=== PATIENT | male | born 1940 | race Caucasian/White ===

== ENCOUNTER 2017-04-01 08:17 | Emergency (ER) | payer MEDICARE, OTHER ==
--- NOTE | 2017-04-01 08:52 | ERPHSYRPT ---
- History of Present Illness Time Seen by Provider: 04/01/17 08:43 Historian: patient Exam Limitations: no limitations Patient Subjective Stated Complaint: pt co abd pain to lower right guad off and on last 2 nights worse.no nausea,vomiting or fever, was seen by dr. flores for same thing Triage Nursing Assessment: pt alert, resp easy, skin w/d pink, abd soft, nontender to touch Physician History: The patient is a 76-year-old male complaining of worsening abdominal pain for about a week. He had an episode of abdominal pain maybe 3-4 weeks ago that lasted a few days and then cleared up. Dr. Thompson had told him the next time it happened to come to the ER because it could be appendicitis. During the first episode of his abdominal pain, the pain began around his belly button. The second time pain occurred beginning one week ago it was in his right lower quadrant. It has now moved towards his right groin. The pain has been increasing over the last 4 days. He denies nausea, vomiting, or diarrhea. He denies urinary problems. He denies fever. He states he know something is wrong and wants to find out what it is. His past medical history is significant for depression and hypertension. Timing/Duration: week(s) (1), gradual onset, worse Activities at Onset: none Quality: stabbing Abdominal Pain Onset Location: periumbilical Pain Radiation: RLQ, groin Severity of Pain-Max: moderate Severity of Pain-Current: moderate Modifying Factors: Improves With: movement, other (worse with bending over.) Associated Symptoms: denies symptoms Previous symptoms: same symptoms as today, recently treated (4 weeks ago) Allergies/Adverse Reactions: No Known Drug Allergies Allergy (Unverified 04/01/17 08:28) Home Medications: Aspirin [Aspir-Low] 81 mg DAILY 04/01/17 [History] Cholecalciferol (Vitamin D3) [Vitamin D] 2,000 units DAILY 04/01/17 [History] Enalapril/Hydrochlorothiazide [Enalapril-Hctz 10-25 mg Tablet] 1 ea DAILY [History] Fluoxetine HCl 20 mg [Prozac 20 MG] 20 mg DAILY 04/01/17 [History] Lecithin, Soy [Lecithin] 400 mg BID 04/01/17 [History] Multivit with Iron,Minerals [Compete] 1 ea DAILY 04/01/17 [History] [place]-3 Fatty Acids/Fish Oil [Fish Oil 1,000 mg Capsule] 1 ea DAILY 04/01/17 [ History] Primidone 50 MG [Mysoline 50Mg] 50 mg BID 04/01/17 [History] Hx Influenza Vaccination/Date Given: No Hx Pneumococcal Vaccination/Date Given: No Immunizations Up to Date: Yes - Review of Systems Constitutional: No Fever, No Chills Eyes: No Symptoms Ears, Nose, & Throat: No Symptoms Respiratory: No Cough, No Dyspnea Cardiac: No Chest Pain, No Edema, No Syncope Abdominal/Gastrointestinal: Abdominal Pain, No Nausea, No Vomiting, No Diarrhea , No Constipation Genitourinary Symptoms: No Dysuria Musculoskeletal: No Back Pain, No Neck Pain Skin: No Rash Neurological: No Dizziness, No Focal Weakness, No Sensory Changes Psychological: No Symptoms Endocrine: No Symptoms Hematologic/Lymphatic: No Symptoms Immunological/Allergic: No Symptoms All Other Systems: Reviewed and Negative - Past Medical History Pertinent Past Medical History: Yes Cardiac History: Hypertension Other Medical History: tremors - Past Surgical History Past Surgical History: Yes Male Surgical History: Vasectomy - Social History Smoking Status: Never smoker Exposure to second hand smoke: No Drug Use: none Patient Lives Alone: No - Nursing Vital Signs Nursing Vital Signs: Initial Vital Signs Temperature 97.8 F 04/01/17 08:20 Pulse Rate 71 04/01/17 08:20 Respiratory Rate 16 04/01/17 08:20 Blood Pressure 149/86 04/01/17 08:20 O2 Sat by Pulse Oximetry 98 04/01/17 08:20 Pain Scale Pain Intensity 0 - Physical Exam General Appearance: no apparent distress, alert Eye Exam: PERRL/EOMI, eyes nml inspection Ears, Nose, Throat Exam: normal ENT inspection, pharynx normal, moist mucous membranes Neck Exam: normal inspection, non-tender, supple, full range of motion Respiratory Exam: normal breath sounds, lungs clear, No respiratory distress Cardiovascular Exam: regular rate/rhythm, normal heart sounds Gastrointestinal/Abdomen Exam: tenderness (right groin) Rectal Exam: not done Back Exam: normal inspection, normal range of motion, No CVA tenderness, No vertebral tenderness Extremity Exam: normal inspection, normal range of motion, pelvis stable Neurologic Exam: alert, oriented x 3, cooperative, normal mood/affect, nml cerebellar function, sensation nml, No motor deficits Skin Exam: normal color, warm, dry SpO2 Interpretation: normal SpO2: 98 Oxygen Delivery: Room Air - CT Exams Abdomen/Pelvis CT Interpretation: Tele-radiologist Report, No appendicitis, Other (Fecal stasis , diverticulosis, right renal cyst, left cortical renal lesion. No acute abd/ pelvic abnormalities per Dr Anaya.) Ordered Tests: Active Orders 24 hr Category Date Time Status IV Insertion STAT Care 04/01/17 08:52 Active ABDOMEN AND PELVIS W/0 CONTRAS [CT] Stat Exams 04/01/17 08:53 Completed CBC W DIFF Stat Lab 04/01/17 09:07 Completed CMP Stat Lab 04/01/17 09:07 Completed LIPASE Stat Lab 04/01/17 09:07 Completed TROPONIN Stat Lab 04/01/17 09:07 Completed UA W/ MICROSCOPIC Stat Lab 04/01/17 09:07 Completed Lab/Rad Data: Laboratory Result Diagrams 04/01/17 09:07 04/01/17 09:07 Laboratory Results 04/01/17 04/01/17 04/01/17 Range/Units 09:07 09:07 09:07 WBC (4.0-10.5) K/mm3 RBC (4.1-5.6) M/mm3 Hgb (12.5-18.0) gm/dl Hct (42-50) % MCV (78-100) fl MCH (26-32) pg MCHC (32-36) g/dl RDW (11.5-14.0) % Plt Count (150-450) K/mm3 MPV (6-9.5) fl Gran % (36.0-66.0) % Lymphocytes % (24.0-44.0) % Monocytes % (0.0-12.0) % Eosinophils % (0.00-5.0) % Basophils % (0.0-0.4) % Basophils # (0-0.4) Sodium 136 (136-145) mEq/L Potassium 3.8 (3.5-5.1) mEq/L Chloride 101 (98-107) mEq/L Carbon Dioxide 26.0 (21-32) mEq/L Anion Gap 12.3 (5-15) MEQ/L BUN 26 H (9-20) mg/dL Creatinine 1.00 (0.55-1.30) mg/dl Estimated GFR > 60 ML/MIN Glucose 97 (70-110) MG/DL Calcium 9.3 (8.5-10.1) mg/dL Total Bilirubin 0.40 (0.2-1.0) mg/dL AST 25 (15-37) U/L ALT 25 (12-78) U/L Alkaline Phosphatase 60 (46-116) U/L Troponin I < 0.017 (0.000-0.056) ng/ml Serum Total Protein 7.0 (6.4-8.2) gm/dL Albumin 3.8 (3.4-5.0) g/dL Lipase 223 (73-393) U/L Ur Collection Type VOID Urine Color YELLOW (YELLOW) Urine Appearance CLEAR (CLEAR) Urine pH 5.0 (5-6) Ur Specific [place] 1.010 (1.005-1.025) Urine Protein NEGATIVE (Negative) Urine Ketones NEGATIVE (NEGATIVE) Urine Blood SMALL (0-5) Coy/ul Urine Nitrite NEGATIVE (NEGATIVE) Urine Bilirubin NEGATIVE (NEGATIVE) Urine Urobilinogen NORMAL (0-1) mg/dL Ur Leukocyte Esterase NEGATIVE (NEGATIVE) Urine Microscopic RBC 0-2 (0-2) /HPF Ur Epithelial Cells RARE (FEW) /HPF Urine Culture Reflexed NO (NO) Urine Glucose NEGATIVE (NEGATIVE) mg/dL Specimen Received 03/28/2017 0900 04/01/17 Range/Units 09:07 WBC 8.1 (4.0-10.5) K/mm3 RBC 4.89 (4.1-5.6) M/mm3 Hgb 15.5 (12.5-18.0) gm/dl Hct 46.2 (42-50) % MCV 94.5 (78-100) fl MCH 31.7 (26-32) pg MCHC 33.5 (32-36) g/dl RDW 13.1 (11.5-14.0) % Plt Count 185 (150-450) K/mm3 MPV 10.8 H (6-9.5) fl Gran % 61.4 (36.0-66.0) % Lymphocytes % 23.6 L (24.0-44.0) % Monocytes % 11.4 (0.0-12.0) % Eosinophils % 3.2 (0.00-5.0) % Basophils % 0.4 (0.0-0.4) % Basophils # 0.03 (0-0.4) Sodium (136-145) mEq/L Potassium (3.5-5.1) mEq/L Chloride (98-107) mEq/L Carbon Dioxide (21-32) mEq/L Anion Gap (5-15) MEQ/L BUN (9-20) mg/dL Creatinine (0.55-1.30) mg/dl Estimated GFR ML/MIN Glucose (70-110) MG/DL Calcium (8.5-10.1) mg/dL Total Bilirubin (0.2-1.0) mg/dL AST (15-37) U/L ALT (12-78) U/L Alkaline Phosphatase (46-116) U/L Troponin I (0.000-0.056) ng/ml Serum Total Protein (6.4-8.2) gm/dL Albumin (3.4-5.0) g/dL Lipase (73-393) U/L Ur Collection Type Urine Color (YELLOW) Urine Appearance (CLEAR) Urine pH (5-6) Ur Specific [place] (1.005-1.025) Urine Protein (Negative) Urine Ketones (NEGATIVE) Urine Blood (0-5) Coy/ul Urine Nitrite (NEGATIVE) Urine Bilirubin (NEGATIVE) Urine Urobilinogen (0-1) mg/dL Ur Leukocyte Esterase (NEGATIVE) Urine Microscopic RBC (0-2) /HPF Ur Epithelial Cells (FEW) /HPF Urine Culture Reflexed (NO) Urine Glucose (NEGATIVE) mg/dL Specimen Received - Progress Progress: unchanged Counseled pt/family regarding: lab results, diagnosis, need for follow-up, rad results - Departure Time of Disposition: 10:19 Departure Disposition: Home Clinical Impression: Abdominal pain, Constipation Condition: Stable Critical Care Time: No Referrals: ALEX THOMPSON [Primary Care Provider] - Additional Instructions: You have abdominal pain that could possibly be caused by constipation. Try magnesium citrate [id number] as a laxative. Follow-up in 2-[address] Thompson.
[2017-04-01 09:08] LABS: BASOPHIL % 0.4 % (0.0-0.4); Eosinophil % 3.2 % (0.00-5.0); Granulocytes % 61.4 % (36.0-66.0); Lymphocytes % 23.6 % (24.0-44.0); Mean Cell Volume 94.5 fl (78-100); Mean Corpuscular Hemoglobin 31.7 pg (26-32); Mean Platelet Volume 10.8 fl (6-9.5); Monocytes % 11.4 % (0.0-12.0); Platelet Count 185 K/mm3 (150-450); Red Blood Count 4.89 M/mm3 (4.1-5.6); Red Cell Distribution Width 13.1 % (11.5-14.0); White Blood Count 8.1 K/mm3 (4.0-10.5)
[2017-04-01 09:17] LABS: ALBUMIN 3.8 g/dL (3.4-5.0); ALKALINE PHOSPHATASE 60 U/L (46-116); ANION GAP 12.3 MEQ/L (5-15); BLOOD UREA NITROGEN 26 mg/dL (9-20); CHLORIDE 101 mEq/L (98-107); Glucose 97 MG/DL (70-110); LIPASE 223 U/L (73-393); Potassium 3.8 mEq/L (3.5-5.1); SGOT/AST 25 U/L (15-37); SGPT/ALT 25 U/L (12-78); SODIUM 136 mEq/L (136-145)
[2017-04-01 09:27] LABS: Bilirubin NEGATIVE (NEGATIVE); Blood SMALL Ery/ul (0-5); Collection Type VOID; Glucose NEGATIVE (NEGATIVE); Leukocyte Esterase NEGATIVE (NEGATIVE)
[2017-04-01 09:28] VITALS: BP 156/80; PULSE 74
[2017-04-01 09:28] LABS: ADD URINE CULTURE? NO (NO); COMPLETE URINE MICROSCOPIC? YES; Epithelial Cells RARE /HPF (FEW)
--- NOTE | 2017-04-01 09:36 | XRAY ---
Indication: Right pelvic intermittent pain for one week. Multiple contiguous axial images obtained through the abdomen and pelvis without contrast as ordered. Comparison: None Lung bases demonstrates bibasilar atelectasis/scarring. No consolidation or effusion. Heart is borderline enlarged. Incidental left hemidiaphragm elevation. Noncontrasted stomach and bowel loops appear nonobstructed. There is mild diffuse scattered colonic fecal debris throughout. Scattered sigmoid diverticulosis without diverticulitis. Normal appendix. No free fluid/air. 2.6 cm right mid renal exophytic cyst. Left mid kidney demonstrates a 6 mm round cortical lesion, more dense than cyst without calcifications. A few calcified splenic granulomas. Remaining liver, gallbladder, pancreas, spleen, adrenal glands, kidneys, ureters, and bladder appear unremarkable for noncontrast exam. Moderate aortoiliac calcifications without AAA. Osseous structures demonstrates moderate/advanced multilevel degenerative spondylosis and moderate dextrorotoscoliosis centered at the L2-L3 level. Bilateral scrotal vasectomy clips. Impression: 1. Fecal stasis without obstruction. Sigmoid diverticulosis. 2. 2.6 cm right renal cyst. 6 mm left renal cortical lesion not a simple cyst but possibly viscous/complex cysts. Renal ultrasound may yield further information if clinically warranted. 3. No acute intra-abdominal/pelvic abnormalities on this noncontrast exam. 4. Incidental left hemidiaphragm elevation, degenerative spondylosis, and scoliosis. CT DI 22.49
[2017-04-01 10:19] VITALS: O2SAT 98
== END 2017-04-01 10:29 | disposition home or self-care (01) ==
LOC: ED 08:17
DX: R10.9 Unspecified abdominal pain (principal); K59.00 Constipation, unspecified; R10.31 Right lower quadrant pain; Z79.899 Other long term (current) drug therapy
CPT/HCPCS: 36000; 36415; 74176; 80053; 81000; 83690; 84484; 85025; 99284

== ENCOUNTER 2017-05-30 08:08 | Day surgery (SDC) | payer MEDICARE, OTHER ==
--- NOTE | 2017-05-30 07:49 | HP ---
DATE OF SURGERY: 05/30/2017 ADMISSION DIAGNOSIS: Right inguinal hernia symptomatic moderate size. ANTICIPATED PROCEDURE: Repair. HISTORY OF PRESENT ILLNESS: PAST MEDICAL HISTORY: ALLERGIES: NONE. MEDICATIONS: Fluoxetine 20 mg, Enalapril/hydrochlorothiazide 10/25, Primidone 50 mg, aspirin. PAST SURGICAL HISTORY: Tonsillectomy, vasectomy. SOCIAL HISTORY: Negative. FAMILY HISTORY: Negative. REVIEW OF SYSTEMS: Hypertension. PHYSICAL EXAMINATION: VITAL SIGNS: Normal. CHEST: Clear. COR: Regular. ABDOMEN: No palpable organomegaly or mass. He has a right inguinal hernia moderate size. IMPRESSION: Symptomatic right inguinal hernia. PLAN: Repair.
[~2017-05-30 08:08] MED LIST: KEFZOL 1 GM ONE; Lactated Ringers 1,000 ML IV ONE; Lactated Ringers 1,000 ML IV SCH; Sensorcaine 0.25% 10 ML ONE
[2017-05-30] MEDS ORDERED: DIPRIVAN 200 MG/20 ML IV ONE (08:09)
[2017-05-30] MEDS ORDERED: SUBLIMAZE 100 MCG/2 ML IV ONE ×3 (08:09)
[2017-05-30] MEDS ORDERED: PHENYLEPHRINE HCL IV ONE (08:09)
[2017-05-30] MEDS ORDERED: Ephedrine Sulfate 50 MG/ML IV ONE (08:09)
[2017-05-30] MEDS ORDERED: Lactated Ringers 1,000 ML IV ONE (08:32)
[2017-05-30] MEDS ORDERED: CEFAZOLIN 2 GM-D5W BAG** 2 GM/50 ML ML IV SCH (09:30)
[2017-05-30] MEDS ORDERED: SUBLIMAZE 100 MCG/2 ML ONE (11:57)
[2017-05-30] MEDS ORDERED: MORPHINE SULFATE 10 MG/ML ONE (12:04)
[2017-05-30] MEDS ORDERED: NORCO 7.5/325 MG TAB PO PRN (13:06)
[2017-05-30 13:40] VITALS: O2SAT 96
[2017-05-30 13:48] VITALS: BP 119/84; PULSE 66
--- NOTE | 2017-05-30 15:27 | OP ---
SURGERY DATE/TIME: 05/30/2017 1041 PREOPERATIVE DIAGNOSIS: Symptomatic right inguinal hernia. POSTOPERATIVE DIAGNOSIS: Right inguinal hernia indirect 4 inches. PROCEDURE: Right inguinal herniorrhaphy with mesh. SURGEON: Skip Kidd M.D. ANESTHESIA: General per CHANGE CONTROL COORDINATOR. COMPLICATIONS: None. ESTIMATD BLOOS LOSS: None. DRAINS: None. CONDITION: Stable. INDICATION: The patient with symptomatic right inguinal hernia. Marked preoperatively. DESCRIPTION OF PROCEDURE: Taken to surgery. General anesthetic. Routine prep and drape. Time out performed. 0.25% Marcaine. Curvilinear incision. External oblique opened, cord opened along the direction of its fibers. A 4 inch indirect sac was from the vas. It had no sliding component. It had no incarcerated contents. It was twisted. It was suture ligated with 0 Prolene. Excess fat removed. The floor was reinforced with 1x4 mesh in Héctor's ligament type fashion throughout with #0 Prolene. Good approximation and hemostasis and repair. Internal ring was 1 clamp tight. The cord and ilioinguinal nerve laid back in natural position. External oblique closed with 0 Vicryl. Shadi fascia closed with 2-0 Vicryl. Skin closed with 4-0 Vicryl. Steri-Strips applied. Sterile dressing applied. The patient tolerated the procedure satisfactorily.
== END 2017-05-30 13:50 | disposition home or self-care (01) ==
LOC: SDC 08:08
PROVIDERS: ATTEND Surgery
PROC: 0YU50JZ Supplement Right Inguinal Region with Synthetic Substitute, Open Approach (ICD-10-PCS; principal; 2017-05-30)
DX: K40.90 Unilateral inguinal hernia, without obstruction or gangrene, not specified as recurrent (principal)
CPT/HCPCS: 00830; 88302; 99100; C1781; J0690; J2270; J2370; J2704; J3010; A9270-GY

== ENCOUNTER 2018-06-16 17:44 | Emergency (ER) | payer MEDICARE, OTHER ==
--- NOTE | 2018-06-16 18:14 | ERPHSYRPT ---
- History of Present Illness Time Seen by Provider: 06/16/18 18:00 Source: patient, family Exam Limitations: no limitations Physician History: 78 y/o white male with h/o htn but no known cardiac dz presents at the urging of home health rn. pt was evaluated by home health care nurse today for discharge of services. pt underwent a right hip surgery in 02/2018. pt is adamant he has no sx and doesnt want to be here. he has never had and never been told he has a abnl heart rhytm. Timing/Duration: today Activities at Onset: none Quality: other (none) Location: other (no cp) Severity of Pain-Max: none Severity of Pain-Current: none Modifying Factors: Improves With: nothing Nitro Today/Relief: no nitro taken today Aspirin Treatment Today: no aspirin today Associated Symptoms: denies symptoms Prior Chest Pain/Cardiac Workup: no prior chest pain Allergies/Adverse Reactions: No Known Drug Allergies Allergy (Verified 06/16/18 18:21) Home Medications: Aspirin [Aspir-Low] 81 mg PO UD 04/01/17 [History] Cholecalciferol (Vitamin D3) [Vitamin D] 2,000 units PO DAILY 04/01/17 [History] Enalapril/Hydrochlorothiazide [Enalapril-Hctz 10-25 mg Tablet] 1 ea PO DAILY 03/10 [History] Fluoxetine HCl 20 mg [Prozac 20 MG] 20 mg PO DAILY 04/01/17 [History] Lecithin, Soy [Lecithin] 400 mg BID 04/01/17 [History] Multivit with Iron,Minerals [Compete] 1 ea PO DAILY 04/01/17 [History] [place]-3 Fatty Acids/Fish Oil [Fish Oil 1,000 mg Capsule] 1 ea DAILY 04/01/17 [ History] Primidone 50 MG [Mysoline 50Mg] 50 mg BID 04/01/17 [History] Hx Influenza Vaccination/Date Given: No Hx Pneumococcal Vaccination/Date Given: No - Review of Systems Constitutional: No Symptoms Eyes: No Symptoms Ears, Nose, & Throat: No Symptoms Respiratory: No Symptoms, No Cough, No Dyspnea, No Stridor, No Wheezing Cardiac: No Symptoms, No Chest Pain, No Palpitations, No Syncope Abdominal/Gastrointestinal: No Symptoms, No Abdominal Pain, No Nausea, No Vomiting, No Diarrhea Genitourinary Symptoms: No Symptoms, No Dysuria, No Frequency, No Hematuria Musculoskeletal: No Symptoms Skin: No Symptoms Neurological: No Symptoms Psychological: No Symptoms Endocrine: No Symptoms Hematologic/Lymphatic: No Symptoms Immunological/Allergic: No Symptoms All Other Systems: Reviewed and Negative - Past Medical History Pertinent Past Medical History: Yes Neurological History: No Pertinent History ENT History: No Pertinent History Cardiac History: Hypertension Respiratory History: No Pertinent History Endocrine Medical History: No Pertinent History Musculoskeletal History: No Pertinent History GI Medical History: No Pertinent History History: No Pertinent History Psycho-Social History: No Pertinent History Male Reproductive Disorders: No Pertinent History Other Medical History: tremors - Past Surgical History Past Surgical History: Yes Neuro Surgical History: No Pertinent History Cardiac: No Pertinent History Respiratory: No Pertinent History Gastrointestinal: No Pertinent History Genitourinary: No Pertinent History Musculoskeletal: No Pertinent History Male Surgical History: Vasectomy - Social History Smoking Status: Former smoker Exposure to second hand smoke: No Drug Use: none Patient Lives Alone: No - Nursing Vital Signs Nursing Vital Signs: Initial Vital Signs Temperature 98 F 06/16/18 18:11 Pulse Rate 73 06/16/18 18:11 Respiratory Rate 16 06/16/18 18:11 Blood Pressure 126/66 06/16/18 18:11 O2 Sat by Pulse Oximetry 98 06/16/18 18:11 Pain Scale Pain Intensity 0 - Physical Exam General Appearance: no apparent distress, alert Eye Exam: PERRL/EOMI, eyes nml inspection Ears, Nose, Throat Exam: normal ENT inspection, moist mucous membranes Neck Exam: normal inspection, non-tender, supple, full range of motion Respiratory Exam: normal breath sounds, lungs clear, airway intact, No chest tenderness, No respiratory distress, No accessory muscle use, No rhonchi, No wheezing, No stridor Cardiovascular Exam: regular rate/rhythm, normal heart sounds, normal peripheral pulses Gastrointestinal/Abdomen Exam: soft, normal bowel sounds, No tenderness, No guarding, No rebound Rectal Exam: not done Back Exam: normal inspection, normal range of motion, No CVA tenderness, No vertebral tenderness Extremity Exam: normal inspection, normal range of motion Neurologic Exam: alert, oriented x 3, cooperative, e commerce merchant II-XII nml as tested Skin Exam: normal color, warm, dry Lymphatic Exam: No adenopathy SpO2 Interpretation: normal Oxygen Delivery: Room Air - Course Nursing assessment & vital signs reviewed: Yes EKG Interpreted by Me: RATE (70), Sinus Rhythm, NORMAL AXIS, 1st degree AV Block , NORMAL QRS, NORMAL ST-T, Non-specific ST Changes, Other (no change from ekg dated 05/20/17) Ordered Tests: Active Orders 24 hr Category Date Time Status EKG-ER Only STAT Care 06/16/18 18:59 Active BMP Stat Lab 06/16/18 19:15 Completed CBC W DIFF Stat Lab 06/16/18 19:15 Completed TROPONIN Q3H Lab 06/16/18 19:15 Completed TROPONIN Q3H Lab 06/16/18 22:00 Ordered TROPONIN Q3H Lab 06/17/18 01:00 Ordered TROPONIN Q3H Lab 06/17/18 04:00 Ordered TROPONIN Q3H Lab 06/17/18 07:00 Ordered Lab/Rad Data: Laboratory Result Diagrams 06/16/18 19:15 06/16/18 19:15 Laboratory Results 06/16/18 06/16/18 06/16/18 Range/Units 19:15 19:15 19:15 WBC 7.8 (4.0-10.5) K/mm3 RBC 4.96 (4.1-5.6) M/mm3 Hgb 15.1 (12.5-18.0) gm/dl Hct 46.0 (42-50) % MCV 92.7 (78-100) fl MCH 30.4 (26-32) pg MCHC 32.8 (32-36) g/dl RDW 13.6 (11.5-14.0) % Plt Count 186 (150-450) K/mm3 MPV 10.1 H (6-9.5) fl Gran % 55.8 (36.0-66.0) % Eos # (Auto) 0.25 (0-0.5) Absolute Lymphs (auto) 2.26 (1.0-4.6) Absolute Monos (auto) 0.91 (0.0-1.3) Lymphocytes % 28.9 (24.0-44.0) % Monocytes % 11.7 (0.0-12.0) % Eosinophils % 3.2 (0.00-5.0) % Basophils % 0.4 (0.0-0.4) % Absolute Granulocytes 4.36 (1.4-6.9) Basophils # 0.03 (0-0.4) Sodium 137 (137-145) mmol/L Potassium 3.8 (3.5-5.1) mmol/L Chloride 98 (98-107) mmol/L Carbon Dioxide 30 (22-30) mmol/L Anion Gap 12.1 (5-15) MEQ/L BUN 19 (9-20) mg/dL Creatinine 0.83 (0.66-1.25) mg/dL Estimated GFR > 60.0 ML/MIN Glucose 97 (74-106) mg/dL Calcium 9.6 (8.4-10.2) mg/dL Troponin I < 0.012 (0.000-0.034) ng/mL - Progress Progress: improved Air Movement: good Blood Culture(s) Obtained: No Antibiotics given: No Counseled pt/family regarding: lab results, diagnosis, need for follow-up - Departure Time of Disposition: 20:04 Departure Disposition: Home Clinical Impression: Palpitation Condition: Stable Critical Care Time: No Referrals: ALEX KUHN [Primary Care Provider] - Additional Instructions: continue your medications as prescribed
[2018-06-16 19:29] LABS: BASOPHIL % 0.4 % (0.0-0.4); Basophil (Absolute #) 0.03 (0-0.4); Eosinophil % 3.2 % (0.00-5.0); Eosinophil (Absolute #) 0.25 (0-0.5); Granulocyte Absolute (ANC) 4.36 (1.4-6.9); Granulocytes % 55.8 % (36.0-66.0); Hemoglobin 15.1 gm/dl (12.5-18.0); Lymphocyte (Absolute #) 2.26 (1.0-4.6); Lymphocytes % 28.9 % (24.0-44.0); Mean Cell Volume 92.7 fl (78-100); Mean Corpuscular Hemoglobin 30.4 pg (26-32); Mean Corpuscular Hgb Concent. 32.8 g/dl (32-36); Mean Platelet Volume 10.1 fl (6-9.5); Monocyte (Absolute #) 0.91 (0.0-1.3); Monocytes % 11.7 % (0.0-12.0); Platelet Count 186 K/mm3 (150-450); Red Blood Count 4.96 M/mm3 (4.1-5.6); Red Cell Distribution Width 13.6 % (11.5-14.0); White Blood Count 7.8 K/mm3 (4.0-10.5)
[2018-06-16 19:49] LABS: ANION GAP 12.1 MEQ/L (5-15); BLOOD UREA NITROGEN 19 mg/dL (9-20); CHLORIDE 98 mmol/L (98-107); Calcium 9.6 mg/dL (8.4-10.2); Carbon Dioxide 30 mmol/L (22-30); Creatinine 1 0.83 mg/dL (0.66-1.25); Glucose 97 mg/dL (74-106); Potassium 3.8 mmol/L (3.5-5.1); SODIUM 137 mmol/L (137-145)
[2018-06-16 20:05] VITALS: BP 129/73; PULSE 65; O2SAT 99
== END 2018-06-16 20:15 | disposition home or self-care (01) ==
LOC: ED 17:44
DX: R00.2 Palpitations (principal); Z79.899 Other long term (current) drug therapy; Z98.890 Other specified postprocedural states
CPT/HCPCS: 36415; 80048; 84484; 85025; 93005; 99284

== ENCOUNTER 2020-05-23 14:34 | Inpatient (IN) | payer MEDICARE, OTHER ==
[2020-05-23] MEDS ORDERED: Aplisol ID ONE (14:46)
[2020-05-23 17:18] LABS: ANION GAP 10.5 MEQ/L (5-15); BLOOD UREA NITROGEN 20 mg/dL (9-20); CHLORIDE 99 mmol/L (98-107); Calcium 8.4 mg/dL (8.4-10.2); Carbon Dioxide 25 mmol/L (22-30); Creatinine 1 0.87 mg/dL (0.66-1.25); EST GLOMERULAR FILTRATION RATE > 60.0 ML/MIN; Glucose 113 mg/dL (74-106); Potassium 3.5 mmol/L (3.5-5.1); SODIUM 131 mmol/L (137-145)
[2020-05-23] MEDS ORDERED: Prozac 20 MG ONE (20:58)
[2020-05-23] MEDS ORDERED: THERAGRAN MULTIVITAMIN ONE (20:58)
[2020-05-23] MEDS ORDERED: Flomax 0.4 MG ONE (20:58)
[2020-05-23] MEDS ORDERED: FISH OIL 1,000 MG CAPSULE PO ONE (20:58)
[2020-05-23] MEDS ORDERED: Ecotrin 325 MG ONE (20:58)
[2020-05-23] MEDS ORDERED: VITAMIN D PO ONE (20:59)
[2020-05-23] MEDS: FISH OIL 1,000 MG CAPSULE PO SCH (21:01)
[2020-05-23] MEDS: VITAMIN D PO SCH (21:01)
[2020-05-23] MEDS: MYSOLINE 50MG PO SCH (21:01)
[2020-05-23] MEDS: Ecotrin 325 MG PO SCH (21:01)
[2020-05-23] MEDS: Flomax 0.4 MG PO SCH (21:01)
[2020-05-23] MEDS: THERAGRAN MULTIVITAMIN PO SCH (21:02)
[2020-05-23] MEDS: Colace 100 MG PO SCH (21:02)
[2020-05-23] MEDS: Prozac 20 MG PO SCH (21:02)
[2020-05-24] MEDS: THERAGRAN MULTIVITAMIN PO SCH (09:22)
[2020-05-24] MEDS: Vasotec 10 MG PO SCH (09:22)
[2020-05-24] MEDS: Colace 100 MG PO SCH ×2 (09:22→21:19)
[2020-05-24] MEDS: VITAMIN D PO SCH (09:22)
[2020-05-24] MEDS: MYSOLINE 50MG PO SCH ×2 (09:22→21:19)
[2020-05-24] MEDS: Flomax 0.4 MG PO SCH (09:22)
[2020-05-24] MEDS: NORCO 5/325 MG PO PRN ×2 (09:23→13:24)
[2020-05-24] MEDS: Prozac 20 MG PO SCH (09:24)
[2020-05-24] MEDS: hydroDIURIL 25 MG PO SCH (09:24)
[2020-05-24] MEDS: ENOXAPARIN SODIUM SQ SCH (09:25)
[2020-05-24] MEDS: FISH OIL 1,000 MG CAPSULE PO SCH (09:25)
[2020-05-24] MEDS: Ecotrin 325 MG PO SCH (09:26)
--- NOTE | 2020-05-24 10:23 | HP ---
CHIEF COMPLAINT: Recent right hip total replacement, status post fall. HISTORY OF PRESENT ILLNESS: The patient is an 79 year old white male patient who recently had surgery by Dr. Restrepo at [facility]. After surgery he was sent home without any physical therapy. The patient reports that he was not able to get up and move around by himself. He reports at rest he has no pain but when he gets up he has a significant amount of pain. He reports that he fell moving from his bathroom back to his couch when the right leg gave way on him and he fell. He reportedly went back by ambulance to [facility] and was kept for less than 24 hours and sent home again without therapy. The patient now due to his inability to be mobile without assistance and fear of falling has been brought into our rehab for swing-bed for rehab for his right hip replacement. PAST MEDICAL/SURGICAL HISTORY: The patient's medical history is otherwise significant for hypertension, depression, benign prostatic hypertrophy. HOME MEDICATIONS: Currently include aspirin 325 daily, docusate sodium 100 mg b.i.d., Enalapril 10 mg daily, hydrochlorothiazide 25 mg a day, Tamsulosin 0.4 mg a day. ALLERGIES: NKDA. PHYSICAL EXAMINATION: The patient's vital signs on admission showed his temperature to be 98.9F, pulse 95, respiratory rate 20, blood pressure 115/59. O2 saturation was 92%. HEENT: Normocephalic, atraumatic. Pupils equal round reactive to light. Extraocular movements intact. Oropharynx is pink and moist. NECK: Supple without lymphadenopathy, thyromegaly or JVD. CHEST: Clear to auscultation. HEART: Regular rate and rhythm. ABDOMEN: Soft. No palpable masses. EXTREMITIES: The right hip incision is currently dressed. We undressed it and it looked at it and it appears to be free of any evidence of infection. The right leg is minimally swollen. Otherwise no clubbing, cyanosis, edema is noted. NEUROLOGIC: The patient is alert and oriented x3 with no focal deficits. LAB DATA AND TESTS: His labs on 05/23/2020 showed glucose 113, BUN 20, creatinine 0.87. Electrolytes showed his sodium slightly low at 131 and electrolytes were otherwise normal. ASSESSMENT: A patient with recent right hip surgery with pain, immobility and inability to care for himself at home. He has been brought in for rehab as stated previously. Will continue his usual home medications as listed above. He is currently scheduled to have physical therapy twice a day. We will give him [place] 5/325 mg every four hours PRN but particularly prior to his therapy. The plan currently is to keep him over the next roughly ten days and eventual discharge home again. He will also receive Lovenox 30 units subcu daily for deep venous thrombosis prophylaxis.
[2020-05-24] MEDS ORDERED: PHARMACY DOSING REQUIRED: VANCOMYCIN IV STA (14:50)
[2020-05-24] MEDS: VANCOMYCIN 1.25 GM/250 ML BAG 1.25 GM/250 ML PIGGYBACK IV SCH (17:45)
[2020-05-25] MEDS: VANCOMYCIN 1.25 GM/250 ML BAG 1.25 GM/250 ML PIGGYBACK IV SCH ×2 (06:09→17:54)
[2020-05-25] MEDS: Colace 100 MG PO SCH ×2 (09:13→21:45)
[2020-05-25] MEDS: Flomax 0.4 MG PO SCH (09:13)
[2020-05-25] MEDS: MYSOLINE 50MG PO SCH ×2 (09:13→21:45)
[2020-05-25] MEDS: FISH OIL 1,000 MG CAPSULE PO SCH (09:13)
[2020-05-25] MEDS: Vasotec 10 MG PO SCH (09:13)
[2020-05-25] MEDS: Prozac 20 MG PO SCH (09:13)
[2020-05-25] MEDS: THERAGRAN MULTIVITAMIN PO SCH (09:13)
[2020-05-25] MEDS: hydroDIURIL 25 MG PO SCH (09:13)
[2020-05-25] MEDS: Ecotrin 325 MG PO SCH (09:13)
[2020-05-25] MEDS: VITAMIN D PO SCH (09:13)
[2020-05-25] MEDS: ENOXAPARIN SODIUM SQ SCH (09:14)
[2020-05-25] MEDS: NORCO 5/325 MG PO PRN (09:14)
[2020-05-26] MEDS ORDERED: TROUGH DRUG LEVELS IJ ONE (05:30)
[2020-05-26] MEDS: VANCOMYCIN 1.25 GM/250 ML BAG 1.25 GM/250 ML PIGGYBACK IV SCH ×2 (06:21→18:11)
[2020-05-26] MEDS: VITAMIN D PO SCH (10:06)
[2020-05-26] MEDS: NORCO 5/325 MG PO PRN (10:06)
[2020-05-26] MEDS: Prozac 20 MG PO SCH (10:06)
[2020-05-26] MEDS: ENOXAPARIN SODIUM SQ SCH (10:07)
[2020-05-26] MEDS: hydroDIURIL 25 MG PO SCH (10:07)
[2020-05-26] MEDS: MYSOLINE 50MG PO SCH ×2 (10:07→22:05)
[2020-05-26] MEDS: Ecotrin 325 MG PO SCH (10:07)
[2020-05-26] MEDS: Vasotec 10 MG PO SCH (10:07)
[2020-05-26] MEDS: Flomax 0.4 MG PO SCH (10:07)
[2020-05-26] MEDS: FISH OIL 1,000 MG CAPSULE PO SCH (10:07)
[2020-05-26] MEDS: Colace 100 MG PO SCH ×2 (10:07→22:06)
[2020-05-26] MEDS: THERAGRAN MULTIVITAMIN PO SCH (10:07)
[2020-05-27] MEDS: NORCO 5/325 MG PO PRN ×2 (04:21→13:11)
[2020-05-27] MEDS: VANCOMYCIN 1.25 GM/250 ML BAG 1.25 GM/250 ML PIGGYBACK IV SCH ×2 (06:19→20:25)
[2020-05-27] MEDS: ENOXAPARIN SODIUM SQ SCH (09:16)
[2020-05-27] MEDS: Colace 100 MG PO SCH ×2 (09:16→21:06)
[2020-05-27] MEDS: FISH OIL 1,000 MG CAPSULE PO SCH (09:16)
[2020-05-27] MEDS: Ecotrin 325 MG PO SCH (09:16)
[2020-05-27] MEDS: Flomax 0.4 MG PO SCH (09:16)
[2020-05-27] MEDS: hydroDIURIL 25 MG PO SCH (09:17)
[2020-05-27] MEDS: Vasotec 10 MG PO SCH (09:17)
[2020-05-27] MEDS: Prozac 20 MG PO SCH (09:17)
[2020-05-27] MEDS: THERAGRAN MULTIVITAMIN PO SCH (09:17)
[2020-05-27] MEDS: MYSOLINE 50MG PO SCH ×2 (09:17→21:06)
[2020-05-27] MEDS: VITAMIN D PO SCH (09:19)
[2020-05-28] MEDS: VANCOMYCIN 1.25 GM/250 ML BAG 1.25 GM/250 ML PIGGYBACK IV SCH ×2 (06:22→17:44)
[2020-05-28] MEDS: FISH OIL 1,000 MG CAPSULE PO SCH (09:08)
[2020-05-28] MEDS: Colace 100 MG PO SCH ×2 (09:08→21:37)
[2020-05-28] MEDS: Ecotrin 325 MG PO SCH (09:08)
[2020-05-28] MEDS: THERAGRAN MULTIVITAMIN PO SCH (09:09)
[2020-05-28] MEDS: MYSOLINE 50MG PO SCH ×2 (09:09→21:37)
[2020-05-28] MEDS: hydroDIURIL 25 MG PO SCH (09:09)
[2020-05-28] MEDS: Flomax 0.4 MG PO SCH (09:09)
[2020-05-28] MEDS: Prozac 20 MG PO SCH (09:09)
[2020-05-28] MEDS: Vasotec 10 MG PO SCH (09:10)
[2020-05-28] MEDS: VITAMIN D PO SCH (09:10)
[2020-05-28] MEDS: ENOXAPARIN SODIUM SQ SCH (09:10)
[2020-05-28] MEDS: NORCO 5/325 MG PO PRN (21:42)
[2020-05-29] MEDS: VANCOMYCIN 1.25 GM/250 ML BAG 1.25 GM/250 ML PIGGYBACK IV SCH (05:48)
[2020-05-29] MEDS: Colace 100 MG PO SCH ×2 (09:29→21:32)
[2020-05-29] MEDS: FISH OIL 1,000 MG CAPSULE PO SCH (09:29)
[2020-05-29] MEDS: THERAGRAN MULTIVITAMIN PO SCH (09:29)
[2020-05-29] MEDS: Ecotrin 325 MG PO SCH (09:29)
[2020-05-29] MEDS: Prozac 20 MG PO SCH (09:29)
[2020-05-29] MEDS: MYSOLINE 50MG PO SCH ×2 (09:29→21:32)
[2020-05-29] MEDS: hydroDIURIL 25 MG PO SCH (09:29)
[2020-05-29] MEDS: Vasotec 10 MG PO SCH (09:29)
[2020-05-29] MEDS: Flomax 0.4 MG PO SCH (09:29)
[2020-05-29] MEDS: ENOXAPARIN SODIUM SQ SCH (09:30)
[2020-05-29] MEDS: VITAMIN D PO SCH (09:30)
[2020-05-29 13:53] LABS: Absolute Neutrophil Ct (ANC) 4.83 (1.4-6.9); BASOPHIL % 0.3 % (0.0-0.4); Basophil (Absolute #) 0.02 (0-0.4); Eosinophil % 1.2 % (0.00-5.0); Eosinophil (Absolute #) 0.08 (0-0.5); Hematocrit 33.2 % (42-50); Hemoglobin 10.3 gm/dl (12.5-18.0); Lymphocyte (Absolute #) 1.06 (1.0-4.6); Lymphocytes % 15.6 % (24.0-44.0); Mean Cell Volume 95.4 fl (78-100); Mean Corpuscular Hemoglobin 29.6 pg (26-32); Mean Platelet Volume 10.3 fl (7.5-11.0); Monocyte (Absolute #) 0.79 (0.0-1.3); Monocytes % 11.7 % (0.0-12.0); Neutrophil % 71.2 % (36.0-66.0); Platelet Count 466 K/mm3 (150-450); Red Blood Count 3.48 M/mm3 (4.1-5.6); Red Cell Distribution Width 13.7 % (11.5-14.0); White Blood Count 6.8 K/mm3 (4.0-10.5)
[2020-05-29 15:01] LABS: ALBUMIN 3.5 g/dL (3.5-5.0); ALKALINE PHOSPHATASE 130 U/L (38-126); ANION GAP 12.4 MEQ/L (5-15); BLOOD UREA NITROGEN 16 mg/dL (9-20); CHLORIDE 96 mmol/L (98-107); Calcium 8.8 mg/dL (8.4-10.2); Carbon Dioxide 26 mmol/L (22-30); Creatinine 1 0.71 mg/dL (0.66-1.25); EST GLOMERULAR FILTRATION RATE > 60.0 ML/MIN; Glucose 120 mg/dL (74-106); Potassium 3.3 mmol/L (3.5-5.1); SGOT/AST 37 U/L (17-59); SGPT/ALT 25 U/L (0-50); SODIUM 131 mmol/L (137-145); Total Protein 6.2 g/dL (6.3-8.2)
[2020-05-29 18:03] LABS: Appearance CLEAR (CLEAR); Bilirubin NEGATIVE (NEGATIVE); Blood NEGATIVE Ery/ul (0-5); Glucose NEGATIVE (NEGATIVE); Ketones NEGATIVE (NEGATIVE); Leukocyte Esterase NEGATIVE (NEGATIVE); Mucus SLIGHT /HPF (NEGATIVE); Nitrite NEGATIVE (NEGATIVE); Protein,Urine Dip NEGATIVE (Negative); Specific Gravity 1.021 (1.005-1.025); Urobilinogen NEGATIVE mg/dL (0-1)
[2020-05-29] MEDS ORDERED: K-LYTE 25 MEQ PO ONE (21:07)
[2020-05-29] MEDS ORDERED: Sodium Chloride 0.9% 1000 ML 1,000 ML IV SCH (21:15)
[2020-05-29] MEDS: NORCO 5/325 MG PO PRN (22:28)
[2020-05-30] MEDS ORDERED: TROUGH DRUG LEVELS IJ ONE (05:30)
[2020-05-30] MEDS: hydroDIURIL 25 MG PO SCH (09:29)
[2020-05-30] MEDS: ENOXAPARIN SODIUM SQ SCH (09:29)
[2020-05-30] MEDS: Flomax 0.4 MG PO SCH (09:29)
[2020-05-30] MEDS: Colace 100 MG PO SCH ×2 (09:29→22:12)
[2020-05-30] MEDS: FISH OIL 1,000 MG CAPSULE PO SCH (09:29)
[2020-05-30] MEDS: THERAGRAN MULTIVITAMIN PO SCH (09:29)
[2020-05-30] MEDS: MYSOLINE 50MG PO SCH ×2 (09:29→22:12)
[2020-05-30] MEDS: VITAMIN D PO SCH (09:29)
[2020-05-30] MEDS: Vasotec 10 MG PO SCH (09:29)
[2020-05-30] MEDS: Ecotrin 325 MG PO SCH (09:29)
[2020-05-30] MEDS: Prozac 20 MG PO SCH (09:29)
[2020-05-30] MEDS ORDERED: PHARMACY DOSING REQUIRED: VANCOMYCIN IV STA (11:06)
[2020-05-30] MEDS: VANCOMYCIN 1.25 GM/250 ML BAG 1.25 GM/250 ML PIGGYBACK IV SCH ×2 (12:04→22:12)
[2020-05-30] MEDS: TYLENOL 325 MG PO PRN (22:12)
[2020-05-31] MEDS: MYSOLINE 50MG PO SCH ×2 (10:47→21:25)
[2020-05-31] MEDS: Vasotec 10 MG PO SCH (10:47)
[2020-05-31] MEDS: Ecotrin 325 MG PO SCH (10:47)
[2020-05-31] MEDS: VANCOMYCIN 1.25 GM/250 ML BAG 1.25 GM/250 ML PIGGYBACK IV SCH ×2 (10:47→21:25)
[2020-05-31] MEDS: hydroDIURIL 25 MG PO SCH (10:47)
[2020-05-31] MEDS: ENOXAPARIN SODIUM SQ SCH (10:48)
[2020-05-31] MEDS: FISH OIL 1,000 MG CAPSULE PO SCH (10:48)
[2020-05-31] MEDS: Flomax 0.4 MG PO SCH (10:48)
[2020-05-31] MEDS: VITAMIN D PO SCH (10:48)
[2020-05-31] MEDS: Colace 100 MG PO SCH ×2 (10:48→21:25)
[2020-05-31] MEDS: Prozac 20 MG PO SCH (10:48)
[2020-05-31] MEDS: THERAGRAN MULTIVITAMIN PO SCH (10:48)
[2020-05-31] MEDS: TYLENOL 325 MG PO PRN (21:31)
[2020-06-01 07:40] VITALS: BP 104/60; PULSE 85; O2SAT 93
[2020-06-01] MEDS: Colace 100 MG PO SCH (09:16)
[2020-06-01] MEDS: ENOXAPARIN SODIUM SQ SCH (09:16)
[2020-06-01] MEDS: Prozac 20 MG PO SCH (09:16)
[2020-06-01] MEDS: FISH OIL 1,000 MG CAPSULE PO SCH (09:16)
[2020-06-01] MEDS: Ecotrin 325 MG PO SCH (09:16)
[2020-06-01] MEDS: Vasotec 10 MG PO SCH (09:16)
[2020-06-01] MEDS: VITAMIN D PO SCH (09:16)
[2020-06-01] MEDS: THERAGRAN MULTIVITAMIN PO SCH (09:16)
[2020-06-01] MEDS: MYSOLINE 50MG PO SCH (09:16)
[2020-06-01] MEDS: hydroDIURIL 25 MG PO SCH (09:16)
[2020-06-01] MEDS: VANCOMYCIN 1.25 GM/250 ML BAG 1.25 GM/250 ML PIGGYBACK IV SCH (09:16)
[2020-06-01] MEDS: Flomax 0.4 MG PO SCH (09:16)
[2020-06-02] MEDS ORDERED: TROUGH DRUG LEVELS IJ ONE (09:30)
== END 2020-06-01 13:05 | disposition home health service (06) | DRG 561 ==
LOC: MED SURG 15:59
PROVIDERS: ADMIT Family Medicine; ATTEND Family Medicine
DX: S72.001D Fracture of unspecified part of neck of right femur, subsequent encounter for closed fracture with routine healing (principal); I10 Essential (primary) hypertension; Z96.641 Presence of right artificial hip joint; Z79.899 Other long term (current) drug therapy
CPT/HCPCS: 36415; 80048; 80053; 80202; 81001; 85025; J1650; 97110-GP; A9270-GY; J3370

== ENCOUNTER 2022-01-24 14:35 | Day surgery (SDC) | payer MEDICARE, OTHER ==
[2022-01-24] MEDS ORDERED: XYLOCAINE-MPF 1% 5ML SDV IJ ONE (14:36)
[2022-01-24] MEDS ORDERED: Marcaine Mpf 0.5% Vial 30 Ml IJ ONE (14:36)
[2022-01-24] MEDS ORDERED: Depo-Medrol 40 MG/ML IM ONE (14:36)
--- NOTE | 2022-01-24 21:54 | XRAY ---
Indication: Bilateral SI joint injection. Intraoperative fluoroscopy provided for 26 seconds. 6 digital spot image submitted for interpretation demonstrates posterior needle tip projecting over the inferior left and right SI joint. Correlate with intraoperative findings/report.
--- NOTE | 2022-01-24 22:11 | XRAY ---
26 seconds of fluoroscopy was used in surgery for a bilateral sacroiliac joint injection.
== END 2022-01-24 16:15 | disposition home or self-care (01) ==
LOC: SDC-PAIN 14:35
PROVIDERS: ATTEND Psychiatry & Neurology Pain Medicine
DX: M46.1 Sacroiliitis, not elsewhere classified (principal); Z79.899 Other long term (current) drug therapy
CPT/HCPCS: 27096; 72202; 77002; G0260; J1030

== ENCOUNTER 2022-02-21 10:39 | Day surgery (SDC) | payer MEDICARE, OTHER ==
[2022-02-21] MEDS ORDERED: LIDOCAINE HCL 2% 100 MG/5 ML IJ ONE (10:40)
[2022-02-21] MEDS ORDERED: Depo-Medrol 40 MG/ML IM ONE (10:40)
[2022-02-21] MEDS ORDERED: DIPRIVAN 200 MG/20 ML IV ONE (11:52)
[2022-02-21] MEDS ORDERED: Lactated Ringers 1,000 ML IV ONE (12:45)
--- NOTE | 2022-02-21 13:34 | XRAY ---
10 seconds fluoroscopy time in surgery for bilateral L4-S1 MBB.
--- NOTE | 2022-02-21 13:37 | XRAY ---
Indication: Bilateral L4-S1 MBB. Intraoperative fluoroscopy provided for 10 seconds. Single digital spot image submitted for interpretation demonstrate posterior needle tips projecting over the expected left and right L4-S1 nerve roots. Correlate with intraoperative findings/report.
== END 2022-02-21 12:20 | disposition home or self-care (01) ==
LOC: SDC-PAIN 10:39
PROVIDERS: ATTEND Psychiatry & Neurology Pain Medicine
DX: M47.816 Spondylosis without myelopathy or radiculopathy, lumbar region (principal); Z79.899 Other long term (current) drug therapy
CPT/HCPCS: 64493; 64494; 72020; 77002; 93005; J1030; J2704

== ENCOUNTER 2022-03-07 14:45 | Day surgery (SDC) | payer MEDICARE, OTHER ==
[2022-03-07] MEDS ORDERED: Depo-Medrol 40 MG/ML IM ONE (14:46)
[2022-03-07] MEDS ORDERED: BUPIVACAINE 0.5% VIAL IJ ONE (14:46)
[2022-03-07] MEDS ORDERED: Lactated Ringers 1,000 ML IV ONE (15:53)
[2022-03-07] MEDS ORDERED: DIPRIVAN 200 MG/20 ML IV ONE (16:17)
--- NOTE | 2022-03-07 18:22 | XRAY ---
Indication: Bilateral L4-S1 MBB. Intraoperative fluoroscopy provided for 12 seconds. Single digital spot image submitted for interpretation demonstrates posterior needle tips projecting over the expected left and right L4-S1 nerve roots. Correlate with intraoperative findings/report.
--- NOTE | 2022-03-08 09:53 | XRAY ---
12 seconds of fluoroscopy was used in surgery for a bilateral L4-S1 MBB.
== END 2022-03-07 17:15 | disposition home or self-care (01) ==
LOC: SDC-PAIN 14:45
PROVIDERS: ATTEND Psychiatry & Neurology Pain Medicine
DX: M47.816 Spondylosis without myelopathy or radiculopathy, lumbar region (principal); Z79.899 Other long term (current) drug therapy
CPT/HCPCS: 64493; 64494; 72020; 77002; 93005; J1030; J2704

== ENCOUNTER 2022-04-04 10:03 | Day surgery (SDC) | payer MEDICARE, OTHER ==
[2022-04-04] MEDS ORDERED: LIDOCAINE HCL 1% 50 MG/5 ML VL PF IJ ONE (10:04)
[2022-04-04] MEDS ORDERED: BUPIVACAINE 0.5% VIAL IJ ONE (10:04)
[2022-04-04] MEDS ORDERED: Depo-Medrol 40 MG/ML IM ONE (10:04)
[2022-04-04] MEDS ORDERED: Lactated Ringers 1,000 ML IV ONE (11:29)
[2022-04-04] MEDS ORDERED: DIPRIVAN 200 MG/20 ML IV ONE (11:45)
--- NOTE | 2022-04-04 12:48 | XRAY ---
Indication: Right L4-S1 RFA. Intraoperative fluoroscopy provided for 31 seconds. 6 digital spot images submitted for interpretation demonstrates posterior needle tips projecting over the expected right L4-S1 nerve roots. Correlate with intraoperative findings/report.
--- NOTE | 2022-04-04 14:39 | XRAY ---
31 seconds of fluoroscopy was used in surgery for a right L4-S1 RFA.
== END 2022-04-04 12:12 | disposition home or self-care (01) ==
LOC: SDC-PAIN 10:03
PROVIDERS: ATTEND Psychiatry & Neurology Pain Medicine
DX: M47.816 Spondylosis without myelopathy or radiculopathy, lumbar region (principal); Z79.899 Other long term (current) drug therapy
CPT/HCPCS: 64635; 64636; 72100; 77002; J1030; J2001; J2704

== ENCOUNTER 2022-04-11 10:17 | Day surgery (SDC) | payer MEDICARE, OTHER ==
[2022-04-11] MEDS ORDERED: Xylocaine 1% Vial 30 ML PF IJ ONE (10:18)
[2022-04-11] MEDS ORDERED: Marcaine Mpf 0.5% Vial 30 Ml IJ ONE (10:18)
[2022-04-11] MEDS ORDERED: Depo-Medrol 40 MG/ML IM ONE (10:18)
[2022-04-11] MEDS ORDERED: DIPRIVAN 200 MG/20 ML IV ONE (12:14)
[2022-04-11] MEDS ORDERED: Lactated Ringers 1,000 ML IV ONE (12:26)
--- NOTE | 2022-04-11 16:44 | XRAY ---
Indication: Left L4-S1 RFA. Intraoperative fluoroscopy provided for 20 seconds. 5 digital spot image submitted for interpretation demonstrates posterior needle tips projecting over the expected left L4-S1 nerve roots. Correlate with intraoperative findings/report.
--- NOTE | 2022-04-11 16:48 | XRAY ---
20 seconds fluoroscopy time in surgery for left L4-S1 RFA.
== END 2022-04-11 12:47 | disposition home or self-care (01) ==
LOC: SDC-PAIN 10:17
PROVIDERS: ATTEND Psychiatry & Neurology Pain Medicine
DX: M47.816 Spondylosis without myelopathy or radiculopathy, lumbar region (principal); Z79.899 Other long term (current) drug therapy
CPT/HCPCS: 64635; 64636; 72100; 77002; 99100; J1030; J2001; J2704

== ENCOUNTER 2023-02-13 09:57 | Day surgery (SDC) | payer MEDICARE, OTHER ==
[2023-02-13] MEDS ORDERED: LIDOCAINE HCL 1% 50 MG/5 ML VL PF IJ ONE (09:58)
[2023-02-13] MEDS ORDERED: Depo-Medrol 40 MG/ML IM ONE (09:58)
[2023-02-13] MEDS ORDERED: BUPIVACAINE 0.5% VIAL IJ ONE (09:58)
[2023-02-13] MEDS ORDERED: DIPRIVAN 200 MG/20 ML IV ONE (11:32)
--- NOTE | 2023-02-13 12:45 | XRAY ---
Indication: Right L4-S1 RFA. Intraoperative fluoroscopy provided for 30 seconds. 4 digital spot image submitted for interpretation demonstrates posterior needle tips projecting over the expected right L4-S1 nerve roots. Correlate with intraoperative findings/report.
--- NOTE | 2023-02-13 13:02 | XRAY ---
30 seconds of fluoroscopy was used in surgery for a right L4-S1 RFA.
[2023-02-13] MEDS ORDERED: Lactated Ringers 1,000 ML IV ONE (13:36)
== END 2023-02-13 12:01 | disposition home or self-care (01) ==
LOC: SDC-PAIN 09:57
PROVIDERS: ATTEND Psychiatry & Neurology Pain Medicine
DX: M47.816 Spondylosis without myelopathy or radiculopathy, lumbar region (principal)
CPT/HCPCS: 64635; 64636; 72100; 77002; 99100; J1030; J2001; J2704

== ENCOUNTER 2023-02-14 12:00 | Day surgery (SDC) | payer MEDICARE, OTHER ==
[2023-02-14] MEDS ORDERED: DIPRIVAN 200 MG/20 ML IV ONE (12:57)
[2023-02-14] MEDS ORDERED: Lactated Ringers 1,000 ML IV ONE (13:44)
--- NOTE | 2023-02-14 14:04 | XRAY ---
Indication: Left L4-S1 RFA. Intraoperative fluoroscopy provided for 27 seconds. 5 digital spot image submitted for interpretation demonstrates posterior needle tips projecting over the expected left L4-S1 nerve roots. Correlate with intraoperative findings/report.
--- NOTE | 2023-02-14 14:07 | XRAY ---
27 seconds of fluoroscopy was used in surgery for a left L4-S1 RFA.
[2023-02-14] MEDS ORDERED: LIDOCAINE HCL 1% 50 MG/5 ML VL PF IJ ONE (15:13)
[2023-02-14] MEDS ORDERED: BUPIVACAINE 0.5% VIAL IJ ONE (15:13)
[2023-02-14] MEDS ORDERED: Depo-Medrol 40 MG/ML IM ONE (15:13)
== END 2023-02-14 13:24 | disposition home or self-care (01) ==
LOC: SDC-PAIN 12:00
PROVIDERS: ATTEND Psychiatry & Neurology Pain Medicine
DX: M47.817 Spondylosis without myelopathy or radiculopathy, lumbosacral region (principal); Z79.899 Other long term (current) drug therapy
CPT/HCPCS: 64635; 64636; 72100; 77002; 99100; J1030; J2001; J2704

== ENCOUNTER 2024-01-10 12:42 | Emergency (ER) | payer MEDICARE ==
[2024-01-10 12:55] VITALS: BP 129/88; PULSE 91; RESP 16; TEMP 96.8; O2SAT 96
--- NOTE | 2024-01-10 13:00 | ERPHSYRPT ---
- History of Present Illness Time Seen by Provider: 01/10/24 13:00 Source: patient, family Exam Limitations: no limitations Patient Subjective Stated Complaint: fall with + head strike Triage Nursing Assessment: patient was in [place] stepping onto a curb and lost his balance and fell and hit his head on pavement. patient is noted to have laceration and hematoma on posterior medial head Physician History: 83 y/o white male stepped up over a curb and lost balance falling backwards hitting his head. he denies loc. no neck pain. skin abrasion post scalp. no anticoag tx. pt states tetanus utd. h/o htn and osteoarthritis. pt is hemodynamically and neurologically stable on arrival and is on hospital account manager. came in by pov with family. the patient and family are aware ct scan being repaired and will be up and running shortly. They have opted to stay for test. Occurred: just prior to arrival Reason for Fall: lost balance, tripped Injuries/Pain Location: head Loss of Consciousness: no loss of consciousness Severity of Pain-Max: mild Severity of Pain-Current: none Modifying Factors: Improves With: nothing Associated Symptoms (Fall): denies symptoms Allergies/Adverse Reactions: No Known Drug Allergies Allergy (Verified 01/10/24 15:47) Home Medications: Cholecalciferol (Vitamin D3) [Vitamin D] 2,000 units PO DAILY 04/01/17 [History] Fluoxetine HCl 20 mg [Prozac 20 MG] 20 mg PO DAILY 04/01/17 [History] Multivit with Iron,Minerals [Compete] 1 ea PO DAILY 04/01/17 [History] [place]-3 Fatty Acids/Fish Oil [Fish Oil 1,000 mg Capsule] 1,000 mg DAILY 04/01/17 [History] Primidone 50 MG [Mysoline 50Mg] 50 mg BID 04/01/17 [History] Aspirin EC 325 mg [Ecotrin 325 MG] 325 mg PO DAILY 05/23/20 [History] Docusate Sodium [Colace] 100 mg PO BID 05/23/20 [History] Enalapril Maleate 10 mg [Vasotec 10 MG] 10 mg PO DAILY 05/23/20 [History] Hydrochlorothiazide 25 mg [hydroDIURIL 25 MG] 25 mg PO DAILY 05/23/20 [History] Tamsulosin HCl 0.4 mg [Flomax 0.4 MG] 0.4 mg PO DAILY 05/23/20 [History] Hx Influenza Vaccination/Date Given: Yes Hx Pneumococcal Vaccination/Date Given: Yes Travel Risk - International Travel Have you traveled outside of the country in past 3 weeks: No - Emerging Infectious Disease Are you exhibiting symptoms associated with any current EIDs: No - Review of Systems Constitutional: No Symptoms Eyes: No Symptoms Ears, Nose, & Throat: No Symptoms Respiratory: No Symptoms Cardiac: No Symptoms Abdominal/Gastrointestinal: No Symptoms Genitourinary Symptoms: No Symptoms Musculoskeletal: No Symptoms Skin: Other (abrasion post scalp) Neurological: No Symptoms Psychological: No Symptoms Endocrine: No Symptoms Hematologic/Lymphatic: No Symptoms Immunological/Allergic: No Symptoms All Other Systems: Reviewed and Negative - Past Medical History Pertinent Past Medical History: Yes Neurological History: Other ENT History: Cataracts Cardiac History: Hypertension Respiratory History: No Pertinent History Endocrine Medical History: No Pertinent History Musculoskeletal History: Osteoarthritis GI Medical History: No Pertinent History History: No Pertinent History Psycho-Social History: No Pertinent History Male Reproductive Disorders: No Pertinent History Other Medical History: PATIENT HAD A PREVIOUS FALL AFFECTING HIS L ELBOW. HE IS GOING TO SEE DR. KUHN AFTER EVAL TODAY. THAT FALL HAPPENED 08/21/23. EVERY ONCE IN A WHILE HE HAS TINGLING IN HIS FEET THAT LAST 15 SECONDS, MAINLY HAPPENS WHEN LYING IN BED ON HIS BACK. - Past Surgical History Past Surgical History: Yes Neuro Surgical History: No Pertinent History Cardiac: No Pertinent History Respiratory: No Pertinent History Gastrointestinal: No Pertinent History Genitourinary: No Pertinent History Musculoskeletal: No Pertinent History Male Surgical History: Vasectomy Other Surgical History: total hip - Social History Smoking Status: Former smoker Exposure to second hand smoke: No Drug Use: none Patient Lives Alone: No - Nursing Vital Signs Nursing Vital Signs: Initial Vital Signs Temperature 96.8 F 01/10/24 12:46 Pulse Rate 91 H 01/10/24 12:46 Respiratory Rate 16 01/10/24 12:46 Blood Pressure 129/88 01/10/24 12:46 O2 Sat by Pulse Oximetry 96 01/10/24 12:46 Pain Scale Pain Intensity 0 - Landing Coma Score Best Eye Response (Landing): (4) open spontaneously Best Verbal Response (Darvin): (5) oriented Best Motor Response (Landing): (6) obeys commands Landing Total: 15 - Physical Exam General Appearance: no apparent distress, alert Head Injury: tenderness (abrasion post scalp. no lac. no fb. no active bleeding. skin tear present) ENT Exam: airway nml, nml ext.inspection, No evidence of ENT injury, No dental injury Neck Exam: supple, trachea midline, full range of motion, normal alignment, normal inspection Respiratory/Chest Exam: No chest tenderness, No respiratory distress Rectal Exam: not done Back Exam: normal inspection, normal range of motion, No CVA tenderness, No vertebral tenderness Extremity Exam: normal inspection, normal range of motion, pelvis stable Neurologic Exam: alert, oriented x 3, cooperative, optometry professor II-XII nml as tested, normal mood/affect, nml cerebellar function, nml station & gait, sensation nml Skin Exam: abrasion (post scalp) SpO2 Interpretation: normal SpO2: 96 O2 Delivery: Room Air - Course Nursing assessment & vital signs reviewed: Yes Ordered Tests: Active Orders 24 hr Category Date Time Status HEAD WITHOUT CONTRAST [CT] Stat Exams 01/10/24 13:57 Completed - Progress Progress: unchanged Progress Note: 01/10/24 14:36 my medical decision making and the assignment of low complexity to this pts medical issue today is based on review of pmh, med list, drug allergy list, hpi and physical findings on exam. workup in this pt includes ct head without contrast 01/10/24 15:45 ct head without interpreted by radiologist. no acute intracranial abnormality and no acute bony injury. senile brain with atrophic changes. signs of normal pressure hydrocephalus. post scalp subcleal hematoma Counseled pt/family regarding: diagnosis, need for follow-up, rad results Medical Desision Making - Independent Historian Additional History obtained from: Family - Diagnostic Testing Diagnostic test were ordered, analyzed, and reviewed by me: Yes Radiological Interpretation: Reviewed by me, Teleradiologist Report - Risk of complications Low Risk: Low risk of morbidity from additional dx testing or treatment - Departure Departure Disposition: Home Clinical Impression: Head injury, Skin tear, Scalp abrasion, non-infected Condition: Stable Critical Care Time: No Referrals: ALEX KUHN [Primary Care Provider] - Follow up/PCP as directed Additional Instructions: keep skin tear repair site dry for 24 hours. after 24 hours, may allow soapy water to run over site. blot dry or use hairdyer to dry. dont rub. if no contraindications, use tylenol and ibuprofen for pain control
--- NOTE | 2024-01-10 15:39 | XRAY ---
CLINICAL HISTORY: fall injury COMPARISON: None TECHNIQUE: An axial non-contrast CT scan of the brain was performed from the skull base to the high parietal region. Coronal and sagittal reconstruction. One of the following dose-reduction techniques was utilized for this exam. Automated exposure control, adjustment of the mA and/or kV according to patient size, and use of iterative reconstruction. DLP: 1154.22mGy-cm, CTDI:53.92 mGy FINDINGS: The visualized brain parenchyma shows a normal appearance for the patient's age, which shows senile changes, however, the ventricular dilatation is more pronounced than the sulcal dilatation, which is highly suspicious of normal pressure hydrocephalus. No focal parenchymal abnormalities are demonstrated. Fernandez-white matter differentiation is maintained. No midline shifts or deformity. No intracerebral or extra axial hematoma. Normal size and configuration of the cerebral ventricles. Normal CT appearance of the posterior fossa structures namely the cerebellar hemispheres, brainstem, and cerebellar peduncles. The IACs are unremarkable. The cerebello-pontine angles are clear. The pituitary gland, the pineal gland, and the optic chiasm are unremarkable. The osseous structures in the skull base are unremarkable. No definite calvarium fractures. Scanned paranasal sinuses are clear, apart from the small fluid level at the right maxillary sinus. A dense small object was noted at the subcutaneous fat of the left cheek. Scalp swelling was noted at the posterior midline at the level of the parietal region. IMPRESSION: 1. No acute intracranial abnormality, bony injury 2. Senile brain atrophic changes with signs of normal pressure hydrocephalus for clinical correlation. 3. A small foreign body at left cheek. 4. Posterior scalp subgaleal hematoma. Electronically Signed by: Maday Hancock MD. (01/10/2024 15:35:56 EDT)
== END 2024-01-10 16:12 | disposition home or self-care (01) ==
LOC: ED 12:42
DX: S00.01XA Abrasion of scalp, initial encounter (principal); W10.1XXA Fall (on)(from) sidewalk curb, initial encounter; I10 Essential (primary) hypertension; Z79.899 Other long term (current) drug therapy
CPT/HCPCS: 70450; 99283

== ENCOUNTER 2024-10-14 17:05 | Emergency (ER) | payer MEDICARE ==
[2024-10-14] MEDS ORDERED: Hydromorphone 1 mg/ml Injection ONE (17:24)
[2024-10-14] MEDS ORDERED: Zofran 4 MG/2 ML VIAL ONE (17:24)
[2024-10-14] MEDS: Zofran 4 MG/2 ML VIAL IV ONE (17:25)
[2024-10-14] MEDS: Hydromorphone 1 mg/ml Injection IV ONE (17:26)
[2024-10-14 17:32] VITALS: RESP 18; TEMP 98
--- NOTE | 2024-10-14 18:50 | ERPHSYRPT ---
- History of Present Illness Time Seen by Provider: 10/14/24 17:11 Patient Subjective Stated Complaint: C/O right shoulder injury following a fall at [employer] around 1pm today. Triage Nursing Assessment: Patient brought back to ER in a W/C. He is alert and oriented. Right shoulder is very swollen and tender. Did not range for fear of exacerbating injury. Allergies/Adverse Reactions: No Known Drug Allergies Allergy (Verified 10/14/24 17:10) Home Medications: Cholecalciferol (Vitamin D3) [Vitamin D] 2,000 units PO DAILY 04/01/17 [History] Fluoxetine HCl 20 mg [Prozac 20 MG] 20 mg PO DAILY 04/01/17 [History] Multivit with Iron,Minerals [Compete] 1 ea PO DAILY 04/01/17 [History] [place]-3 Fatty Acids/Fish Oil [Fish Oil 1,000 mg Capsule] 1,000 mg PO DAILY 04/01/17 [History] Primidone 50 MG [Mysoline 50Mg] 50 mg BID 04/01/17 [History] Docusate Sodium [Colace] 100 mg PO BID 05/23/20 [History] Hydrochlorothiazide 25 mg [hydroDIURIL 25 MG] 25 mg PO DAILY 05/23/20 [History] Tamsulosin HCl 0.4 mg [Flomax 0.4 MG] 0.4 mg PO DAILY 05/23/20 [History] Hx Tetanus, Diphtheria Vaccination/Date Given: Yes Hx Influenza Vaccination/Date Given: Yes Hx Pneumococcal Vaccination/Date Given: Yes Immunizations Up to Date: Yes Travel Risk - International Travel Have you traveled outside of the country in past 3 weeks: No - Emerging Infectious Disease Are you exhibiting symptoms associated with any current EIDs: No - Review of Systems Constitutional: No Symptoms Eyes: No Symptoms Ears, Nose, & Throat: No Symptoms Skin: No Symptoms Neurological: No Symptoms - Past Medical History Pertinent Past Medical History: Yes Neurological History: Other ENT History: Cataracts Cardiac History: Hypertension Respiratory History: No Pertinent History Endocrine Medical History: No Pertinent History Musculoskeletal History: Osteoarthritis GI Medical History: No Pertinent History History: No Pertinent History Psycho-Social History: No Pertinent History Male Reproductive Disorders: Prostate Problems Other Medical History: Dr. Islas - Past Surgical History Past Surgical History: Yes Neuro Surgical History: No Pertinent History Cardiac: No Pertinent History Respiratory: No Pertinent History Gastrointestinal: Hernia Repair Genitourinary: No Pertinent History Musculoskeletal: No Pertinent History Male Surgical History: Vasectomy Other Surgical History: total RIGHT hip x 3 - Social History Smoking Status: Former smoker Exposure to second hand smoke: No Drug Use: none - Social Determinants of Health Will the patient participate in the screening: Yes Do you worry about a steady place to live?: No Do you have any problems with any of the following?: No known problems In the past 12 months,have you had to go without utilities?: No Transportation Issues: No Has anyone in your support network made you feel unsafe?: No Have you or anyone in your house had to go w/o enough food: No - Nursing Vital Signs Nursing Vital Signs: Initial Vital Signs Temperature 98 F 10/14/24 17:06 Pulse Rate 70 10/14/24 17:06 Respiratory Rate 18 10/14/24 17:06 Blood Pressure 147/85 10/14/24 17:06 O2 Sat by Pulse Oximetry 96 10/14/24 17:06 Pain Scale Pain Intensity 10 - Physical Exam General Appearance: no apparent distress Cardiovascular/Respiratory Exam: chest non-tender, normal breath sounds Shoulder Exam: bone tenderness, limited ROM, swelling Elbow/Forearm Exam: normal inspection Wrist Exam: normal inspection Hand Exam: normal inspection Neuro/Tendon Exam: normal sensation Mental Status Exam: alert, oriented x 3 Skin Exam: normal color, warm, dry SpO2: 95 - Course Nursing assessment & vital signs reviewed: Yes Ordered Tests: Active Orders 24 hr Category Date Time Status SHOULDER Stat Exams 10/14/24 17:10 Taken UPPER EXTREMITY W/O CONTRAST [CT] Stat Exams 10/14/24 18:43 Ordered Medication Summary Discontinued Medications Generic Name Dose Route Start Last Admin Trade Name Freq PRN Reason Stop Dose Admin Hydromorphone HCl 1 mg 10/14/24 17:10 10/14/24 17:26 Hydromorphone 1 Mg/1ml Inj IV 10/14/24 17:11 1 mg STAT ONE Administration Hydromorphone HCl Confirm 10/14/24 17:24 Hydromorphone 1 Mg/1ml Inj Administered 10/14/24 17:25 Dose 1 mg .ROUTE .STK-MED ONE Ondansetron HCl 4 mg 10/14/24 17:10 10/14/24 17:25 Ondansetron Hcl 4 Mg/2 Ml Vial IV 10/14/24 17:11 4 mg STAT ONE Administration Ondansetron HCl Confirm 10/14/24 17:24 Ondansetron Hcl 4 Mg/2 Ml Vial Administered 10/14/24 17:25 Dose 4 mg .ROUTE .STK-MED ONE - Progress Progress Note: X-ray revealed a impacted proximal humerus fracture. I spoke with the orthopedist on-call Dr. Pratt. He said to get a CT and have him put a sling on and follow-up in his office tomorrow or the next day 10/14/24 18:47 - Departure Departure Disposition: Home Clinical Impression: Fracture of proximal end of right humerus Condition: Stable Critical Care Time: No Referrals: ALEX KUHN [Primary Care Provider, [facility]] - Follow up/PCP as directed RONAK PRATT MD [ACTIVE STAFF, ORTHOPEDICS] - Follow up/PCP as directed Instructions: Shoulder Fracture (DC) Additional Instructions: Wear sling and take pain meds as needed Call Dr. Pratt for follow-up appointment tomorrow.
[2024-10-14 19:16] VITALS: O2SAT 97
[2024-10-14] MEDS ORDERED: NORCO 5/325 MG ONE (20:03)
[2024-10-14] MEDS: NORCO 5/325 MG PO ONE (20:08)
[2024-10-14 20:09] VITALS: BP 125/63; PULSE 68
--- NOTE | 2024-10-15 08:37 | XRAY ---
Indication: Trauma. Comparison: None 3 view right shoulder demonstrates mildly displaced humeral head/neck fracture. Elsewhere osteopenia, mild AC degenerative changes, and minimal/mild multilevel degenerative spondylosis.
--- NOTE | 2024-10-15 08:42 | XRAY ---
Indication: Trauma. Multiple contiguous images obtained through right shoulder. Sagittal and coronal reformatted images obtained. Comparison: None Osseous structures demineralized consistent with patient's age. There is mildly displaced comminuted acute fracture involving lateral humeral head and humeral neck with small effusion. Elsewhere mild glenohumeral/AC degenerative arthropathy and minimal/mild multilevel thoracic endplate spurring. Visualized noncontrasted soft tissues demonstrates diffuse right lung and pleural parenchymal fibrosis/scarring. Impression: Humeral head/neck fracture, osteopenia, and degenerative arthropathy/spondylosis all reported on same day shoulder radiograph. Incidental right lung pleural parenchymal fibrosis/scarring.
== END 2024-10-14 20:31 | disposition home or self-care (01) ==
LOC: ED 17:05
DX: S42.291A Other displaced fracture of upper end of right humerus, initial encounter for closed fracture (principal); W18.30XA Fall on same level, unspecified, initial encounter; Y92.512 Supermarket, store or market as the place of occurrence of the external cause; I10 Essential (primary) hypertension; Z79.891 Long term (current) use of opiate analgesic; Z79.899 Other long term (current) drug therapy
CPT/HCPCS: 73030; 73200; 96374; 96375; 99284; J1171; J2405; A9270-GY

== ENCOUNTER 2025-01-20 15:39 | Observation (INO) | payer MEDICARE ==
[2025-01-20] MEDS ORDERED: DUONEB 0.5-3 MG/3 ml Neb IH ONE (16:09)
[2025-01-20] MEDS: DUONEB 0.5-3 MG/3 ml Neb IH ONE (16:13)
[2025-01-20 16:20] LABS: BASOPHIL % 0.7 % (0.2-1.2); Basophil (Absolute #) 0.08 x10^3/uL (0.01-0.08); Eosinophil (Absolute #) 0.35 x10^3/uL (0.04-0.54); Hematocrit 49.8 % (40.1-51.0); Hemoglobin 15.7 g/dL (13.7-17.5); IMMATURE GRAN # 0.08 x10^3u/L (0.001-0.031); IMMATURE GRAN % 0.7 % (0.001-0.429); Lymphocyte (Absolute #) 1.67 x10^3/uL (1.32-3.57); Mean Corpuscular Hemoglobin 29.7 pg (25.7-32.2); Mean Corpuscular Hgb Concent. 31.5 g/dL (32.3-36.5); Monocyte (Absolute #) 1.00 x10^3/uL (0.30-0.82); NUCLEATED RBC # 0.00 x10^3u/L (0.00-0.012); NUCLEATED RBC % 0.0 % (0.00-0.2); Platelet Count 189 x10^3/uL (163-337); Red Blood Count 5.29 x10^6/uL (4.63-6.08); White Blood Count 11.7 x10^3/uL (4.23-9.07)
--- NOTE | 2025-01-20 16:28 | XRAY ---
Indication: Short of breath. Comparison: December 05, 2024 Portable chest again demonstrates pulmonary edema, cardiomegaly, and left hemidiaphragm elevation with adjacent subsegmental atelectasis. Bony thorax intact again with osteopenia, degenerative changes, and healing right humeral head fracture. No new cardiopulmonary abnormalities.
[2025-01-20 16:44] LABS: Calcium 9.8 mg/dL (8.4-10.2); Carbon Dioxide 26.0 mmol/L (22-30); Creatinine 1 0.78 mg/dL (0.66-1.25); EST GLOMERULAR FILTRATION RATE 87.4 ML/MIN; Glucose 90.0 mg/dL (74-106); Potassium 4.4 mmol/L (3.5-5.1); SGOT/AST 45.0 U/L (17-59); SGPT/ALT 48.0 U/L (0-50); Total Protein 6.8 g/dL (6.3-8.2)
[2025-01-20] MEDS ORDERED: Sterile H2O 10 ml IJ ONE (17:00)
[2025-01-20] MEDS: solu-MEDROL 125 MG, Sterile H2O 10 ml 2 ML IV ONE (17:01)
[2025-01-20] MEDS ORDERED: ZITHROMAX IV IV ONE (17:24)
[2025-01-20] MEDS ORDERED: ROCEPHIN 2 GM/100 ML NACL 2 GM/100 ML IVPB IV ONE (17:24)
[2025-01-20] MEDS: ROCEPHIN 2 GM/100 ML NACL 2 GM/100 ML IVPB IV ONE (17:27)
[2025-01-20] MEDS: ZITHROMAX IV*** 500 MG in Sodium Chloride 0.9% 250 ML 250 ML IV STA (17:28)
--- NOTE | 2025-01-20 17:28 | ERPHSYRPT ---
- History of Present Illness Time Seen by Provider: 01/20/25 15:42 Source: patient, EMS Exam Limitations: no limitations Patient Subjective Stated Complaint: Pt. states, "I was doing my physical therapy with home health and got short of breath but I've been short of breath since I came home from the hospital.". EMS reports that [facility], not on home O2. Triage Nursing Assessment: Pt arrives via ambulance, A&Ox3, Skin P/W/D, loose, REsp. labored, short of breath at rest with O2 on at 2L per [place], no edema Physician History: 84-year-old male with history of atrial fibrillation on Eliquis, hypertension, congestive heart failure, COPD presented in the ER with 2 to 3 weeks history of progressively increasing shortness of breath and cough productive of minimal sputum. Patient reports earlier his oxygen saturation was dropping in 70s. Denies any chest pain but tightness. Denies increased swelling of lower extremities. No fever or chills reported. Patient is placed on 2 L oxygen with sats in the mid to upper 90s. Allergies/Adverse Reactions: No Known Drug Allergies Allergy (Verified 12/05/24 21:06) Home Medications: Fluoxetine HCl 20 mg [Prozac 20 MG] 20 mg PO DAILY 04/01/17 [History] Tamsulosin HCl 0.4 mg [Flomax 0.4 MG] 0.4 mg PO DAILY 05/23/20 [History] Enalapril Maleate 5 mg PO DAILY 11/22/24 [History] Potassium Chloride 20 meq PO BID 12/05/24 [History] Acetaminophen 325 mg [Tylenol 325 mg] 325 mg PO Q6H PRN PRN 01/20/25 [History] Budesonide/Glycopyr/Formoterol [Breztri Aerosphere Inhaler] 10.7 gm IH BID 01/20/25 [History] Ipratropium/Albuterol Sulfate [Iprat-Albut 0.5-3(2.5) mg/3 ml] 3 ml IH QID PRN PRN 01/20/25 [History] Hx Tetanus, Diphtheria Vaccination/Date Given: No Hx Influenza Vaccination/Date Given: Yes Hx Pneumococcal Vaccination/Date Given: Yes Travel Risk - International Travel Have you traveled outside of the country in past 3 weeks: No - Emerging Infectious Disease Are you exhibiting symptoms associated with any current EIDs: No Symptoms: Shortness of Breath - Review of Systems Constitutional: Fatigue, Weakness Eyes: No Symptoms Ears, Nose, & Throat: No Symptoms Respiratory: Cough, Dyspnea, Dyspnea on Exertion (ABRAMS), Wheezing Cardiac: Chest Pain Abdominal/Gastrointestinal: No Symptoms Genitourinary Symptoms: No Symptoms Musculoskeletal: Arthralgias Skin: No Symptoms Neurological: No Symptoms Endocrine: No Symptoms Immunological/Allergic: No Symptoms - Past Medical History Pertinent Past Medical History: Yes Neurological History: Other ENT History: Cataracts Cardiac History: Arrhythmia, Hypertension Respiratory History: Pneumonia Endocrine Medical History: No Pertinent History Musculoskeletal History: Fractures, Osteoarthritis GI Medical History: No Pertinent History History: No Pertinent History, Other Psycho-Social History: No Pertinent History Male Reproductive Disorders: Prostate Problems Other Medical History: Dr. Islas; chronic tremors, afib, R shoulder fx (10/14/24) - Past Surgical History Past Surgical History: Yes Neuro Surgical History: No Pertinent History Cardiac: No Pertinent History Respiratory: No Pertinent History Gastrointestinal: Hernia Repair Genitourinary: No Pertinent History Musculoskeletal: No Pertinent History Male Surgical History: Vasectomy Other Surgical History: total RIGHT hip x 3 Significant Family History: heart disease (father and brother) - Social History Smoking Status: Former smoker Exposure to second hand smoke: No Drug Use: none - Social Determinants of Health Will the patient participate in the screening: Declined to provide - Nursing Vital Signs Nursing Vital Signs: Initial Vital Signs Temperature 97.0 F 01/20/25 15:39 Pulse Rate 66 01/20/25 15:39 Respiratory Rate 24 01/20/25 15:39 Blood Pressure 118/74 01/20/25 15:39 O2 Sat by Pulse Oximetry 97 01/20/25 15:39 Pain Scale Pain Intensity 0 - Physical Exam General Appearance: no apparent distress Eye Exam: PERRL/EOMI Ears, Nose, Throat Exam: hearing grossly normal, normal pharynx Neck Exam: normal inspection, full range of motion Respiratory Exam: diminished breath sounds, rhonchi, wheezing Cardiovascular/Chest Exam: normal heart sounds, irregular Abdominal/Gastrointestinal Exam: soft, normal bowel sounds, No tenderness Extremity Exam: non-tender, normal range of motion Neurologic Exam: alert, oriented x 3, cooperative, income tax administrator II-XII nml as tested Skin Exam: normal color SpO2 Interpretation: O2 applied SpO2: 99 O2 Delivery: Nasal Cannula - Course EKG Interpreted by Me: RATE ([id number]), A-fib, Left [place] Deviation, NORMAL INTERVALS, Q-wave, Non-specific ST Changes Ordered Tests: Active Orders 24 hr Category Date Time Status Appraiser Auditor STAT Care 01/20/25 15:52 Active EKG-ER Only STAT Care 01/20/25 15:52 Active IV Insertion STAT Care 01/20/25 15:52 Active Oxygen-ED Only Nasal Cannula 2 lpm Care 01/20/25 15:52 Active CHEST 1 VIEW (PORTABLE) Stat Exams 01/20/25 15:52 Completed BLOOD CULTURE Stat Lab 01/20/25 16:09 Received CBC W DIFF Stat Lab 01/20/25 16:15 Completed CMP Stat Lab 01/20/25 16:15 Completed Lactic Acid Stat Lab 01/20/25 16:14 Completed MAGNESIUM Stat Lab 01/20/25 16:15 Completed TROPONIN Q4H Lab 01/20/25 16:15 Completed TROPONIN Q4H Lab 01/20/25 20:00 Ordered TROPONIN Q4H Lab 01/21/25 00:00 Ordered Transfer Order Routine Transfer 01/20/25 Ordered Medication Summary Generic Name Dose Route Start Last Admin Trade Name Freq PRN Reason Stop Dose Admin Azithromycin 500 mg/ Sodium 250 mls @ 250 mls/hr 01/20/25 17:20 01/20/25 17:28 Chloride IV 01/20/25 18:19 250 mls/hr STAT STA 250 mls/hr Administration Discontinued Medications Generic Name Dose Route Start Last Admin Trade Name Freq PRN Reason Stop Dose Admin Albuterol/Ipratropium 3 ml 01/20/25 15:52 01/20/25 16:13 Ipratropium/Albuterol Sulfate 3 Ml Ampul.Neb IH 01/20/25 15:53 3 ml STAT ONE Administration Albuterol/Ipratropium Confirm 01/20/25 16:09 Ipratropium/Albuterol Sulfate 3 Ml Ampul.Neb Administered 01/20/25 16:10 Dose 3 ml IH .STK-MED ONE Azithromycin Confirm 01/20/25 17:24 Azithromycin Inj Administered 01/20/25 17:25 Dose 500 mg IV .STK-MED ONE Methylprednisolone Sodium 0 mg 01/20/25 15:52 01/20/25 17:01 Succinate 125 mg/ Sterile IV 01/20/25 15:53 125 mg Water 2 ml STAT ONE Administration Ceftriaxone Sodium 2 gm in 100 mls @ 200 mls/hr 01/20/25 17:20 01/20/25 17:53 Rocephin 2 Gm/100 Ml Nacl IV 01/20/25 17:49 Infused STAT ONE Infusion Sodium Chloride Confirm 01/20/25 17:24 Sodium Chloride 0.9% 250 Ml Administered 01/20/25 17:25 Dose 250 mls @ ud IV .STK-MED ONE Ceftriaxone Sodium Confirm 01/20/25 17:24 Rocephin 2 Gm/100 Ml Nacl Administered 01/20/25 17:25 Dose 2 gm in 100 mls @ ud IV .STK-MED ONE Methylprednisolone Sodium Succinate Confirm 01/20/25 17:00 Methylprednis Sod Succ 125 Mg/2 Ml Vial Administered 01/20/25 17:01 Dose 125 mg .ROUTE .STK-MED ONE Sterile Water Confirm 01/20/25 17:00 Water For Injection,Sterile 10 Ml Vial Administered 01/20/25 17:01 Dose 10 ml IJ .STK-MED ONE Lab/Rad Data: Laboratory Result Diagrams 01/20/25 16:15 01/20/25 16:15 Laboratory Results 01/20/25 01/20/25 01/20/25 Range/Units 16:15 16:15 16:15 WBC 11.7 H (4.23-9.07) x10^3/uL RBC 5.29 (4.63-6.08) x10^6/uL Hgb 15.7 (13.7-17.5) g/dL Hct 49.8 (40.1-51.0) % MCV 94.1 H (79.0-92.2) fL MCH 29.7 (25.7-32.2) pg MCHC 31.5 L (32.3-36.5) g/dL RDW 14.6 H (11.6-14.4) % Plt Count 189 (163-337) x10^3/uL MPV 10.5 (9.4-12.4) fL Gran % 72.7 H (34.0-67.9) % Immature Gran % (Auto) 0.7 H (0.001-0.429) % Nucleat RBC Rel Count 0.0 (0.00-0.2) % Eos # (Auto) 0.35 (0.04-0.54) x10^3/uL Immature Gran # (Auto) 0.08 H (0.001-0.031) x10^3u/L Absolute Lymphs (auto) 1.67 (1.32-3.57) x10^3/uL Absolute Monos (auto) 1.00 H (0.30-0.82) x10^3/uL Absolute Nucleated RBC 0.00 (0.00-0.012) x10^3u/L Lymphocytes % 14.3 L (21.8-53.1) % Monocytes % 8.6 (5.3-12.2) % Eosinophils % 3.0 (0.8-7.0) % Basophils % 0.7 (0.2-1.2) % Absolute Granulocytes 8.50 H (1.78-5.38) x10^3/uL Basophils # 0.08 (0.01-0.08) x10^3/uL Sodium 139 (135-145) mmol/L Potassium 4.4 (3.5-5.1) mmol/L Chloride 104 (98-107) mmol/L Carbon Dioxide 26 (22-30) mmol/L Anion Gap 12.7 (5-15) MEQ/L BUN 44 H (9-20) mg/dL Creatinine 0.78 (0.66-1.25) mg/dL Estimated GFR 87.4 ML/MIN Glucose 90 (74-106) mg/dL Lactic Acid (0.4-2.0) Calcium 9.8 (8.4-10.2) mg/dL Magnesium 1.8 (1.6-2.3) mg/dL Total Bilirubin 1.30 (0.2-1.3) mg/dL AST 45 (17-59) U/L ALT 48 (0-50) U/L Alkaline Phosphatase 92 (38-126) U/L Troponin I 0.016 (0.000-0.033) ng/mL Serum Total Protein 6.8 (6.3-8.2) g/dL Albumin 3.8 (3.5-5.0) g/dL 01/20/25 Range/Units 16:14 WBC (4.23-9.07) x10^3/uL RBC (4.63-6.08) x10^6/uL Hgb (13.7-17.5) g/dL Hct (40.1-51.0) % MCV (79.0-92.2) fL MCH (25.7-32.2) pg MCHC (32.3-36.5) g/dL RDW (11.6-14.4) % Plt Count (163-337) x10^3/uL MPV (9.4-12.4) fL Gran % (34.0-67.9) % Immature Gran % (Auto) (0.001-0.429) % Nucleat RBC Rel Count (0.00-0.2) % Eos # (Auto) (0.04-0.54) x10^3/uL Immature Gran # (Auto) (0.001-0.031) x10^3u/L Absolute Lymphs (auto) (1.32-3.57) x10^3/uL Absolute Monos (auto) (0.30-0.82) x10^3/uL Absolute Nucleated RBC (0.00-0.012) x10^3u/L Lymphocytes % (21.8-53.1) % Monocytes % (5.3-12.2) % Eosinophils % (0.8-7.0) % Basophils % (0.2-1.2) % Absolute Granulocytes (1.78-5.38) x10^3/uL Basophils # (0.01-0.08) x10^3/uL Sodium (135-145) mmol/L Potassium (3.5-5.1) mmol/L Chloride (98-107) mmol/L Carbon Dioxide (22-30) mmol/L Anion Gap (5-15) MEQ/L BUN (9-20) mg/dL Creatinine (0.66-1.25) mg/dL Estimated GFR ML/MIN Glucose (74-106) mg/dL Lactic Acid 1.1 (0.4-2.0) Calcium (8.4-10.2) mg/dL Magnesium (1.6-2.3) mg/dL Total Bilirubin (0.2-1.3) mg/dL AST (17-59) U/L ALT (0-50) U/L Alkaline Phosphatase (38-126) U/L Troponin I (0.000-0.033) ng/mL Serum Total Protein (6.3-8.2) g/dL Albumin (3.5-5.0) g/dL - Progress Progress: improved Air Movement: good Progress Note: 01/20/25 17:25 Differential diagnosis: COPD exacerbation/pneumonia, CHF exacerbation, sepsis, acute coronary syndrome 84-year-old with history of A-fib on Eliquis is evaluated in the ER for increasing shortness of breath and minimal productive cough. Patient is on 2 L oxygen with sats in mid 90s. He has no chronic respiratory failure. Is given breathing treatment and steroid, on reevaluation feeling better. Workup showed white count of 11, chemistries with negative initial troponin and normal BNP. Chest x-ray consistent with some congestion and opacity interpreted by me but official report consistent with pulmonary edema. Patient blood pressure is in low 100s &90s, we will not give him Lasix. I have given a dose of Rocephin and Zithromax as I believe patient has a combination of CHF and more of a COPD exacerbation and would benefit with breathing treatment antibiotics and steroids. I have shared the results of workup with patient and family and recommended observation admission which they understand and agree. Patient discussed with Dr. Guzmán hospitalist and agreed with admission. Complexity of problems addressed: Moderate to high acuity Complexity of data reviewed/analyzed: Moderate to extensive Risk of complication: Moderate. Blood Culture(s) Obtained: Yes Antibiotics given: Yes Discussed with : Lachelle Will see patient in: hospital (observation) Counseled pt/family regarding: lab results, diagnosis, rad results Medical Desision Making - Independent Historian Additional History obtained from: Driver Supervisor/EMT - External Record(s) Reviewed Records reviewed as a part of evaluation & management: Discharge Summary - Discussion of managment Care discussed with:: hospitalist Reviewed:: Test results Agreed on:: Treatment plan, place in obs Will see patient: in hospital - Diagnostic Testing Diagnostic test were ordered, analyzed, and reviewed by me: Yes Radiological Interpretation: Interpreted by me, Reviewed by me - Risk of complications The pt has a mod risk of morbidity or mortality based on: Need for prescription drug management The pt has a high risk of morbidity or mortality based on: Decision regarding hospitilization or escalation of hosp level of care - Departure Departure Disposition: Observation Clinical Impression: COPD exacerbation Condition: Stable Critical Care Time: No Referrals: ALEX KUHN [Primary Care Provider, [facility]] - Follow up/PCP as directed Instructions: Chronic Obstructive Pulmonary Disease
[2025-01-20] MEDS ORDERED: TYLENOL 325 MG PO PRN (18:34)
[2025-01-20] MEDS ORDERED: Zofran 4 MG/2 ML VIAL IV PRN (18:38)
[2025-01-20] MEDS: DUONEB 0.5-3 MG/3 ml Neb IH SCH (19:15)
--- NOTE | 2025-01-20 19:28 | PCM.HP ---
History of Present Illness - Chief Complaint Chief Complaint: copd exacerbation Date: 01/20/25 History of Present Illness: is a 84 year old male with a history of atrial fibrillation (on Eliquis; follows with Dr. Islas and had a DCCV a few weeks ago), hypertension, congestive heart failure (EF 55% on recent ECHO), and COPD (not on home oxygen, with a recent hospitalization in November for an exacerbation), who presented to the ED with 2 to 3 weeks history of progressively increasing shortness of breath and cough productive of minimal sputum. The patient reports earlier his oxygen saturation was dropping in 70s at home. He denied hemoptysis and any chest pain, but he did report tightness. He denied increased swelling of lower extremities, fever or chills. In the ED, the patient was placed on 2 L oxygen with sats in the mid to upper 90s. Antibiotics, steroids and nebulizer treatments were initiated. The patient's daughter is at bedside during my assessment. - Review of Systems Constitutional: No Symptoms Eyes: No Symptoms Ears, Nose, & Throat: No Symptoms Respiratory: Cough, Short Of Breath, Wheezing, No Orthopnea, No Stridor Cardiac: No Symptoms Abdominal/Gastrointestinal: No Symptoms Genitourinary Symptoms: No Symptoms Musculoskeletal: No Symptoms Skin: No Symptoms Neurological: No Symptoms Psychological: No Symptoms Endocrine: No Symptoms Hematologic/Lymphatic: No Symptoms Immunological/Allergic: No Symptoms All Other Systems: Reviewed and Negative Medications & Allergies Home Medications: Home Medication List Fluoxetine HCl 20 mg [Prozac 20 MG] 20 mg PO DAILY 04/01/17 [History Confirmed 01/20/25] Tamsulosin HCl 0.4 mg [Flomax 0.4 MG] 0.4 mg PO DAILY 05/23/20 [History Confirmed 01/20/25] Enalapril Maleate 5 mg PO DAILY 11/22/24 [History Confirmed 01/20/25] Potassium Chloride 20 meq PO BID 12/05/24 [History Confirmed 01/20/25] Apixaban [Eliquis] 5 mg PO BID 30 Days #60 tablet 12/09/24 [Rx Confirmed 01/20/25] Metoprolol Tartrate 25 mg [Lopressor 25MG Tab] 25 mg PO BID 30 Days #60 tablet 12/09/24 [Rx Confirmed 01/20/25] Acetaminophen 325 mg [Tylenol 325 mg] 325 mg PO Q6H PRN PRN 01/20/25 [History Confirmed 01/20/25] Budesonide/Glycopyr/Formoterol [Breztri Aerosphere Inhaler] 10.7 gm IH BID 01/20/25 [History Confirmed 01/20/25] Ipratropium/Albuterol Sulfate [Iprat-Albut 0.5-3(2.5) mg/3 ml] 3 ml IH QID PRN PRN 01/20/25 [History Confirmed 01/20/25] Allergies/Adverse Reactions: Allergies Allergy/AdvReac Type Severity Reaction Status Date / Time No Known Drug Allergies Allergy Verified 12/05/24 21:06 - Past Medical History Past Medical History: Yes Neurological History: Other ENT History: Cataracts Cardiac History: Arrhythmia, Hypertension Respiratory History: Pneumonia Endocrine Medical History: No Pertinent History Musculoskelatal History: Fractures, Osteoarthritis GI Medical History: No Pertinent History History: No Pertinent History, Other Pyscho-Social History: No Pertinent History Male Reproductive Disorders: Prostate Problems Comment: Dr. Islas; chronic tremors, afib, R shoulder fx (10/14/24), [facility] - Past Surgical History Past Surgical History: Yes Neuro Surgical History: No Pertinent History Cardiac History: No Pertinent History Respiratory Surgery: No Pertinent History GI Surgical History: Hernia Repair Genitourinary Surgical Hx: No Pertinent History Musculskeletal Surgical Hx: No Pertinent History Male Surgical History: Vasectomy Other Surgical History: total RIGHT hip x 3 Significant Family History: heart disease (father and brother) - Social History Smoking Status: Former smoker Exposure to second hand smoke: No Alcohol: None Drug Use: none - Social Determinants of Health Will the patient participate in the screening: Yes Do you worry about a steady place to live?: Yes Do you have any problems with any of the following?: No known problems In the past 12 months,have you had to go without utilities?: No Have you or anyone in your house had to go without enough: No Transportation Issues: No Has anyone in your support network made you feel unsafe?: No Does the patient want assistance with any of the above?: No - Physical Exam Vital Signs: Vital Signs - 24 hr Temp Pulse Resp BP BP Pulse Ox 01/20/25 18:34 97.9 F 60 20 112/56 96 01/20/25 18:18 99 01/20/25 18:00 57 L 20 90/63 97 01/20/25 17:30 46 L 20 110/50 99 01/20/25 17:00 68 22 94/42 99 01/20/25 16:30 53 L 21 94/55 99 01/20/25 16:22 49 L 16 99 01/20/25 16:01 62 22 104/55 100 01/20/25 15:52 25 H 100 01/20/25 15:41 64 118/74 97 01/20/25 15:39 97.0 F 66 24 118/74 97 General Appearance: no apparent distress, alert Neurologic Exam: alert, oriented x 3, cooperative, paragliding instructor II-XII nml as tested, normal mood/affect, nml cerebellar function, No sensation nml, No motor deficits, No sensory deficit Eye Exam: PERRL/EOMI, eyes nml inspection, No scleral icterus Ears, Nose, Throat Exam: normal ENT inspection Neck Exam: normal inspection, non-tender, supple, full range of motion, No meningismus Respiratory Exam: airway intact, diminished breath sounds, prolonged expirations, wheezing, No chest tenderness, No respiratory distress, No accessory muscle use, No crackles/rales, No rhonchi, No stridor, No pleural rub Cardiovascular Exam: No edema Gastrointestinal/Abdomen Exam: soft, normal bowel sounds, No tenderness, No distention, No guarding Back Exam: normal range of motion Extremity Exam: normal inspection, normal range of motion, No pedal edema Skin Exam: normal color, No rash, No petechiae, No jaundice Results - Labs Lab/Micro Results: Lab Results-Last 24 Hours 01/20/25 01/20/25 01/20/25 Range/Units 16:14 16:15 16:15 WBC 11.7 H (4.23-9.07) x10^3/uL RBC 5.29 (4.63-6.08) x10^6/uL Hgb 15.7 (13.7-17.5) g/dL Hct 49.8 (40.1-51.0) % MCV 94.1 H (79.0-92.2) fL MCH 29.7 (25.7-32.2) pg MCHC 31.5 L (32.3-36.5) g/dL RDW 14.6 H (11.6-14.4) % Plt Count 189 (163-337) x10^3/uL MPV 10.5 (9.4-12.4) fL Gran % 72.7 H (34.0-67.9) % Immature Gran % (Auto) 0.7 H (0.001-0.429) % Nucleat RBC Rel Count 0.0 (0.00-0.2) % Eos # (Auto) 0.35 (0.04-0.54) x10^3/uL Immature Gran # (Auto) 0.08 H (0.001-0.031) x10^3u/L Absolute Lymphs (auto) 1.67 (1.32-3.57) x10^3/uL Absolute Monos (auto) 1.00 H (0.30-0.82) x10^3/uL Absolute Nucleated RBC 0.00 (0.00-0.012) x10^3u/L Lymphocytes % 14.3 L (21.8-53.1) % Monocytes % 8.6 (5.3-12.2) % Eosinophils % 3.0 (0.8-7.0) % Basophils % 0.7 (0.2-1.2) % Absolute Granulocytes 8.50 H (1.78-5.38) x10^3/uL Basophils # 0.08 (0.01-0.08) x10^3/uL Sodium 139 (135-145) mmol/L Potassium 4.4 (3.5-5.1) mmol/L Chloride 104 (98-107) mmol/L Carbon Dioxide 26 (22-30) mmol/L Anion Gap 12.7 (5-15) MEQ/L BUN 44 H (9-20) mg/dL Creatinine 0.78 (0.66-1.25) mg/dL Estimated GFR 87.4 ML/MIN Glucose 90 (74-106) mg/dL Lactic Acid 1.1 (0.4-2.0) Calcium 9.8 (8.4-10.2) mg/dL Magnesium 1.8 (1.6-2.3) mg/dL Total Bilirubin 1.30 (0.2-1.3) mg/dL AST 45 (17-59) U/L ALT 48 (0-50) U/L Alkaline Phosphatase 92 (38-126) U/L Troponin I (0.000-0.033) ng/mL Serum Total Protein 6.8 (6.3-8.2) g/dL Albumin 3.8 (3.5-5.0) g/dL // Range/Units 16:15 WBC (4.23-9.07) x10^3/uL RBC (4.63-6.08) x10^6/uL Hgb (13.7-17.5) g/dL Hct (40.1-51.0) % MCV (79.0-92.2) fL MCH (25.7-32.2) pg MCHC (32.3-36.5) g/dL RDW (11.6-14.4) % Plt Count (163-337) x10^3/uL MPV (9.4-12.4) fL Gran % (34.0-67.9) % Immature Gran % (Auto) (0.001-0.429) % Nucleat RBC Rel Count (0.00-0.2) % Eos # (Auto) (0.04-0.54) x10^3/uL Immature Gran # (Auto) (0.001-0.031) x10^3u/L Absolute Lymphs (auto) (1.32-3.57) x10^3/uL Absolute Monos (auto) (0.30-0.82) x10^3/uL Absolute Nucleated RBC (0.00-0.012) x10^3u/L Lymphocytes % (21.8-53.1) % Monocytes % (5.3-12.2) % Eosinophils % (0.8-7.0) % Basophils % (0.2-1.2) % Absolute Granulocytes (1.78-5.38) x10^3/uL Basophils # (0.01-0.08) x10^3/uL Sodium (135-145) mmol/L Potassium (3.5-5.1) mmol/L Chloride (98-107) mmol/L Carbon Dioxide (22-30) mmol/L Anion Gap (5-15) MEQ/L BUN (9-20) mg/dL Creatinine (0.66-1.25) mg/dL Estimated GFR ML/MIN Glucose (74-106) mg/dL Lactic Acid (0.4-2.0) Calcium (8.4-10.2) mg/dL Magnesium (1.6-2.3) mg/dL Total Bilirubin (0.2-1.3) mg/dL AST (17-59) U/L ALT (0-50) U/L Alkaline Phosphatase (38-126) U/L Troponin I 0.016 (0.000-0.033) ng/mL Serum Total Protein (6.3-8.2) g/dL Albumin (3.5-5.0) g/dL - Radiology Impressions Radiology Exams & Impressions: Radiology Procedures Category Date Time Status CHEST 1 VIEW (PORTABLE) Stat Exams 01/20/25 15:52 Completed - Other Procedures and Tests Respiratory Therapy 01/20/25 19:19 Oxygen Nasal Cannula 2 lpm 01/20/25 19:20 Incentive Spirometry UD Assessment/Plan (1) COPD exacerbation Current Visit: Yes Status: Acute Assessment & Plan: Nebs, steroids, O2, antibiotics. Mobilize as tolerated. Collect sputum if p roduced. Mucinex. Code(s): J44.1 - CHRONIC OBSTRUCTIVE PULMONARY DISEASE W (ACUTE) EXACERBATION (2) Acute hypoxic respiratory failure Current Visit: Yes Status: Acute Assessment & Plan: Wean O2 as tolerated. Ambulatory O2 sat eval with PT. Code(s): J96.01 - ACUTE RESPIRATORY FAILURE WITH HYPOXIA (3) Acute bronchitis Current Visit: Yes Status: Acute Assessment & Plan: Antibiotics. Collect sputum culture. Code(s): J20.9 - ACUTE BRONCHITIS, UNSPECIFIED (4) Atrial fibrillation Current Visit: Yes Status: Acute Assessment & Plan: Had DCCV a few weeks ago. Continue home regimen. On anticoagulation. Telemetry monitoring. Code(s): I48.91 - UNSPECIFIED ATRIAL FIBRILLATION Telemedicine Encounter - Telemedicine Encounter Telemedicine Encounter: "The entirety of this encounter was performed via Telemedicine" This visit was performed using real-time audio and video connection between my location and thepatients locationwith the assistance of a surrogateat the patients location. Written or verbal consent was obtained from the patient/guardian to perform this [facility]. Any patient questions regarding the telemedicine interaction were answered. Please note that this admission required 48 minutes to complete.
[2025-01-20] MEDS ORDERED: ELIQUIS 2.5 MG TABLET ONE (22:01)
[2025-01-20] MEDS ORDERED: Klor Con ONE (22:01)
[2025-01-20] MEDS: NON-FORMULARY ITEM (Potassium Chloride [Potassium Chloride] 20 MEQ Tab.Er.Prt) PO SCH (22:04)
[2025-01-20] MEDS: Lopressor 25MG Tab PO SCH (22:04)
[2025-01-20] MEDS: Mucinex 600MG ER Tabs PO SCH (22:04)
[2025-01-20] MEDS: NON-FORMULARY ITEM (Apixaban [Eliquis] 5 MG Tablet) PO SCH (22:04)
[2025-01-20] MEDS: solu-MEDROL 40 MG, Sterile H2O 10 ml 1 ML IV SCH (22:05)
[2025-01-21 02:44] LABS: BASOPHIL % 0.1 % (0.2-1.2); Basophil (Absolute #) 0.01 x10^3/uL (0.01-0.08); Eosinophil (Absolute #) 0 x10^3/uL (0.04-0.54); Hematocrit 47.7 % (40.1-51.0); Hemoglobin 15.1 g/dL (13.7-17.5); IMMATURE GRAN # 0.06 x10^3u/L (0.001-0.031); IMMATURE GRAN % 0.8 % (0.001-0.429); Lymphocyte (Absolute #) 0.67 x10^3/uL (1.32-3.57); Mean Corpuscular Hemoglobin 29.3 pg (25.7-32.2); Mean Corpuscular Hgb Concent. 31.7 g/dL (32.3-36.5); Monocyte (Absolute #) 0.04 x10^3/uL (0.30-0.82); NUCLEATED RBC # 0.00 x10^3u/L (0.00-0.012); NUCLEATED RBC % 0.0 % (0.00-0.2); Platelet Count 170 x10^3/uL (163-337); Red Blood Count 5.16 x10^6/uL (4.63-6.08); White Blood Count 7.6 x10^3/uL (4.23-9.07)
[2025-01-21 03:10] LABS: Calcium 9.5 mg/dL (8.4-10.2); Carbon Dioxide 25.0 mmol/L (22-30); Creatinine 1 0.75 mg/dL (0.66-1.25); EST GLOMERULAR FILTRATION RATE 88.4 ML/MIN; Glucose 149.0 mg/dL (74-106); NT PRO BNPII 1380.0 pg/mL (<300); Potassium 4.3 mmol/L (3.5-5.1)
[2025-01-21] MEDS: Advair Hfa 115/21 Common canister IH SCH (07:41)
[2025-01-21] MEDS: ROCEPHIN 1 GM / 100 ML NaCl 1 GM/100 ML IVPB IV SCH (09:05)
[2025-01-21] MEDS: Acidophilus TABLET PO SCH (09:06)
[2025-01-21] MEDS: ELIQUIS 2.5 MG TABLET PO SCH (09:06)
[2025-01-21] MEDS: Flomax 0.4 MG PO SCH (09:06)
[2025-01-21] MEDS: Klor Con PO SCH (09:06)
[2025-01-21] MEDS: Zestril 10 MG PO SCH (09:06)
[2025-01-21] MEDS: Prozac 20 MG PO SCH (09:06)
[2025-01-21] MEDS ORDERED: ENALAPRIL MALEATE 5 MG PO SCH (10:00)
--- NOTE | 2025-01-21 10:14 | PCM.DS ---
Discharge Summary Date of Admission: 01/20/25 18:20 Date of Discharge: 01/21/25 Admitting Physician: HEDY BUTT MD Primary Care Provider: ALEX KUHN Allergies Allergies No Known Drug Allergies Allergy (Verified 12/05/24 21:06) Hospital Summary - Hospital Course Hospital Course: The patient is an 84-year-old male with a history of atrial fibrillation (on Eliquis, followed by Dr. Islas, with a recent DCCV), hypertension, congestive heart failure (EF 55% on recent echocardiogram), and COPD (not on home oxygen, with a recent hospitalization in November for an exacerbation), who presented to the ED with a 23 week history of progressively worsening shortness of breath and a minimally productive cough. He reported that his oxygen saturation had dropped into the 70s at home. He denied chest pain, hemoptysis, lower extremity swelling, fever, or chills, but did endorse chest tightness. In the ED, he was started on 2 L nasal cannula oxygen, with oxygen saturation improving to the [id number] 90s. He was initiated on antibiotics, steroids, and nebulizer treatments. On 01/21/25, the patient was sitting up in a chair and appeared comfortable. Troponin levels 3 were negative. He is currently maintaining oxygen saturation at 96% on room air, and his lung sounds are clear. Physical therapy will assist with ambulation, and respiratory therapy will evaluate for home oxygen needs. The patient and his daughter report intermittent choking while drinking and eating, so a speech therapy evaluation is scheduled for today. The patient states he has not had much appetite but is agreeable to drinking Ensure and prefers the vanilla flavor, which has been added to his meal plan. He will continue on his current treatment regimen, including antibiotics, steroids, and DuoNebs, while awaiting further evaluations. - Vitals & Intake/Output Vital Signs: Vital Signs Temperature 97.7 F 01/21/25 08:00 Pulse Rate 66 01/21/25 08:00 Respiratory Rate 20 01/21/25 08:00 Blood Pressure 128/63 01/21/25 08:00 O2 Sat by Pulse Oximetry 91 L 01/21/25 08:00 Intake & Output: Intake & Output 01/18/25 01/19/25 01/20/25 01/21/25 11:59 11:59 11:59 11:59 Intake Total 580 Output Total 350 Balance 230 Weight 75.7 kg - Lab Result Diagrams: 01/21/25 02:30 01/21/25 02:30 Lab Results-Last 24 Hrs: Lab Results-Last 24 Hours 01/20/25 01/20/25 01/20/25 Range/Units 16:14 16:15 16:15 WBC 11.7 H (4.23-9.07) x10^3/uL RBC 5.29 (4.63-6.08) x10^6/uL Hgb 15.7 (13.7-17.5) g/dL Hct 49.8 (40.1-51.0) % MCV 94.1 H (79.0-92.2) fL MCH 29.7 (25.7-32.2) pg MCHC 31.5 L (32.3-36.5) g/dL RDW 14.6 H (11.6-14.4) % Plt Count 189 (163-337) x10^3/uL MPV 10.5 (9.4-12.4) fL Gran % 72.7 H (34.0-67.9) % Immature Gran % (Auto) 0.7 H (0.001-0.429) % Nucleat RBC Rel Count 0.0 (0.00-0.2) % Eos # (Auto) 0.35 (0.04-0.54) x10^3/uL Immature Gran # (Auto) 0.08 H (0.001-0.031) x10^3u/L Absolute Lymphs (auto) 1.67 (1.32-3.57) x10^3/uL Absolute Monos (auto) 1.00 H (0.30-0.82) x10^3/uL Absolute Nucleated RBC 0.00 (0.00-0.012) x10^3u/L Lymphocytes % 14.3 L (21.8-53.1) % Monocytes % 8.6 (5.3-12.2) % Eosinophils % 3.0 (0.8-7.0) % Basophils % 0.7 (0.2-1.2) % Absolute Granulocytes 8.50 H (1.78-5.38) x10^3/uL Basophils # 0.08 (0.01-0.08) x10^3/uL Sodium 139 (135-145) mmol/L Potassium 4.4 (3.5-5.1) mmol/L Chloride 104 (98-107) mmol/L Carbon Dioxide 26 (22-30) mmol/L Anion Gap 12.7 (5-15) MEQ/L BUN 44 H (9-20) mg/dL Creatinine 0.78 (0.66-1.25) mg/dL Estimated GFR 87.4 ML/MIN Glucose 90 (74-106) mg/dL Lactic Acid 1.1 (0.4-2.0) Calcium 9.8 (8.4-10.2) mg/dL Magnesium 1.8 (1.6-2.3) mg/dL Total Bilirubin 1.30 (0.2-1.3) mg/dL AST 45 (17-59) U/L ALT 48 (0-50) U/L Alkaline Phosphatase 92 (38-126) U/L Troponin I (0.000-0.033) ng/mL NT-Pro-B Natriuret Pep (<300) pg/mL Serum Total Protein 6.8 (6.3-8.2) g/dL Albumin 3.8 (3.5-5.0) g/dL 01/20/25 01/20/25 01/21/25 Range/Units 16:15 20:10 02:30 WBC 7.6 (4.23-9.07) x10^3/uL RBC 5.16 (4.63-6.08) x10^6/uL Hgb 15.1 (13.7-17.5) g/dL Hct 47.7 (40.1-51.0) % MCV 92.4 H (79.0-92.2) fL MCH 29.3 (25.7-32.2) pg MCHC 31.7 L (32.3-36.5) g/dL RDW 14.4 (11.6-14.4) % Plt Count 170 (163-337) x10^3/uL MPV 10.4 (9.4-12.4) fL Gran % 89.8 H (34.0-67.9) % Immature Gran % (Auto) 0.8 H (0.001-0.429) % Nucleat RBC Rel Count 0.0 (0.00-0.2) % Eos # (Auto) 0 L (0.04-0.54) x10^3/uL Immature Gran # (Auto) 0.06 H (0.001-0.031) x10^3u/L Absolute Lymphs (auto) 0.67 L (1.32-3.57) x10^3/uL Absolute Monos (auto) 0.04 L (0.30-0.82) x10^3/uL Absolute Nucleated RBC 0.00 (0.00-0.012) x10^3u/L Lymphocytes % 8.8 L (21.8-53.1) % Monocytes % 0.5 L (5.3-12.2) % Eosinophils % 0.0 L (0.8-7.0) % Basophils % 0.1 L (0.2-1.2) % Absolute Granulocytes 6.86 H (1.78-5.38) x10^3/uL Basophils # 0.01 (0.01-0.08) x10^3/uL Sodium (135-145) mmol/L Potassium (3.5-5.1) mmol/L Chloride (98-107) mmol/L Carbon Dioxide (22-30) mmol/L Anion Gap (5-15) MEQ/L BUN (9-20) mg/dL Creatinine (0.66-1.25) mg/dL Estimated GFR ML/MIN Glucose (74-106) mg/dL Lactic Acid (0.4-2.0) Calcium (8.4-10.2) mg/dL Magnesium (1.6-2.3) mg/dL Total Bilirubin (0.2-1.3) mg/dL AST (17-59) U/L ALT (0-50) U/L Alkaline Phosphatase (38-126) U/L Troponin I 0.016 0.013 (0.000-0.033) ng/mL NT-Pro-B Natriuret Pep (<300) pg/mL Serum Total Protein (6.3-8.2) g/dL Albumin (3.5-5.0) g/dL 01/21/25 01/21/25 Range/Units 02:30 02:30 WBC (4.23-9.07) x10^3/uL RBC (4.63-6.08) x10^6/uL Hgb (13.7-17.5) g/dL Hct (40.1-51.0) % MCV (79.0-92.2) fL MCH (25.7-32.2) pg MCHC (32.3-36.5) g/dL RDW (11.6-14.4) % Plt Count (163-337) x10^3/uL MPV (9.4-12.4) fL Gran % (34.0-67.9) % Immature Gran % (Auto) (0.001-0.429) % Nucleat RBC Rel Count (0.00-0.2) % Eos # (Auto) (0.04-0.54) x10^3/uL Immature Gran # (Auto) (0.001-0.031) x10^3u/L Absolute Lymphs (auto) (1.32-3.57) x10^3/uL Absolute Monos (auto) (0.30-0.82) x10^3/uL Absolute Nucleated RBC (0.00-0.012) x10^3u/L Lymphocytes % (21.8-53.1) % Monocytes % (5.3-12.2) % Eosinophils % (0.8-7.0) % Basophils % (0.2-1.2) % Absolute Granulocytes (1.78-5.38) x10^3/uL Basophils # (0.01-0.08) x10^3/uL Sodium 138 (135-145) mmol/L Potassium 4.3 (3.5-5.1) mmol/L Chloride 105 (98-107) mmol/L Carbon Dioxide 25 (22-30) mmol/L Anion Gap 12.4 (5-15) MEQ/L BUN 44 H (9-20) mg/dL Creatinine 0.75 (0.66-1.25) mg/dL Estimated GFR 88.4 ML/MIN Glucose 149 H (74-106) mg/dL Lactic Acid (0.4-2.0) Calcium 9.5 (8.4-10.2) mg/dL Magnesium (1.6-2.3) mg/dL Total Bilirubin (0.2-1.3) mg/dL AST (17-59) U/L ALT (0-50) U/L Alkaline Phosphatase (38-126) U/L Troponin I 0.012 (0.000-0.033) ng/mL NT-Pro-B Natriuret Pep 1380 (<300) pg/mL Serum Total Protein (6.3-8.2) g/dL Albumin (3.5-5.0) g/dL - Radiology Exams Ordered Rad Exams-Entire Visit: Radiology Procedures Category Date Time Status CHEST 1 VIEW (PORTABLE) Stat Exams 01/20/25 15:52 Completed - Procedures and Test Procedures and Tests throughout Hospitalization: Therapy Orders & Screens 01/20/25 18:38 PT Eval & Treat ( Order) ONCE Reason for Eval:: ambulatory O2 assessment Diagnosis: copd exacerbation Respiratory Therapy Consult ONCE Comment: Reason For Exam: Diagnosis: copd exacerbation 01/20/25 18:40 ST Eval & Treat (MD Order) ROUTINE Comment: Physician Instructions: Reason For Exam: Evaluate: Yes Treat: Yes Reason for Eval: assess for occult dysphagia Diagnosis: copd exacerbation 01/20/25 18:57 RT Screen per Nursing Assess ONCE Comment: Protocol Order Physician Instructions: Greater than 3 points order RT Admission Screen Reason For Exam: Triggered on Admission Diagnosis: copd exacerbation Diagnosis: copd exacerbation Pneumonia: Yes Home O2: No Asthma: No CHF: No Home CPAP/BIPAP: No Home Nebs/MDI: Yes Total Points: 8 ST Screen per Nursing Assess ONCE Comment: Protocol Order Physician Instructions: Greater than [address] Admission Screening Reason For Exam: Triggered on Admission Diagnosis: copd exacerbation CVA/Dysphagia/Aphasia: No Cognitive Deficits: No Dehydration/Nutrition Deficit: No Reflux: No Oral-Motor Difficulties: No Pneumonia: Yes Intermediate Resident: No Total Points: 5 01/20/25 19:19 Oxygen Nasal Cannula 2 lpm Comment: Diagnosis: copd exacerbation 01/20/25 19:20 Incentive Spirometry UD Comment: Diagnosis: copd exacerbation Discharge Exam General Appearance: no apparent distress, alert Neurologic Exam: alert, oriented x 3, cooperative, normal mood/affect, nml cerebellar function, sensation nml, No motor deficits Eye Exam: PERRL, EOMI, eyes nml inspection Ears, Nose, Throat Exam: normal ENT inspection, pharynx normal, moist mucous membranes Neck Exam: normal inspection, non-tender, supple, full range of motion Respiratory Exam: normal breath sounds, lungs clear, No respiratory distress Cardiovascular Exam: regular rate/rhythm, normal heart sounds Gastrointestinal/Abdomen Exam: soft, No tenderness, No mass Male Genitalia Exam: deferred Rectal Exam: deferred Back Exam: normal inspection, normal range of motion, No CVA tenderness, No vertebral tenderness Extremity Exam: normal inspection, normal range of motion Skin Exam: normal color, warm, dry Final Diagnosis/Problem List - Final Discharge Diagnosis/Problem (1) COPD exacerbation Current Visit: Yes Status: Acute Assessment & Plan: - Ceftriaxone, Duoneb, Adviar, steroids, Mucinex - Lung sounds clear - RA 97% - RT eval for home O2 - CBC, CMP reviewed - WBC 7.6 Code(s): J44.1 - CHRONIC OBSTRUCTIVE PULMONARY DISEASE W (ACUTE) EXACERBATION (2) Dysphagia Current Visit: Yes Status: Acute Assessment & Plan: - ST eval - Coughing with eating and drinking observed by staff and daughter Code(s): R13.10 - DYSPHAGIA, UNSPECIFIED (3) Weight loss Current Visit: Yes Status: Acute Assessment & Plan: - 5 kg since october - Ensure high protein- vanilla - Pt states he does not feel like eating much. (4) Acute bronchitis Current Visit: Yes Status: Acute Assessment & Plan: - Ceftriaxone, Duoneb, Adviar, steroids, Mucinex - Lung sounds clear - RA 97% Code(s): J20.9 - ACUTE BRONCHITIS, UNSPECIFIED (5) Acute hypoxic respiratory failure Current Visit: Yes Status: Acute Assessment & Plan: - Ceftriaxone, Duoneb, Adviar, steroids, Mucinex - Lung sounds clear - RA 97% - RT eval for home O2 - CXR: Portable chest again demonstrates pulmonary edema, cardiomegaly, and left hemidiaphragm elevation with adjacent subsegmental atelectasis. Bony thorax intact again with osteopenia, degenerative changes, and healing right humeral head fracture. No new cardiopulmonary abnormalities. Code(s): J96.01 - ACUTE RESPIRATORY FAILURE WITH HYPOXIA (6) Atrial fibrillation Current Visit: Yes Status: Chronic Assessment & Plan: - Had DCCV a few weeks ago. - Continue home regimen. - On anticoagulation. - Telemetry monitoring. Code(s): I48.91 - UNSPECIFIED ATRIAL FIBRILLATION (7) BPH (benign prostatic hyperplasia) Current Visit: No Status: Chronic Assessment & Plan: - Continue Flomax Code(s): N40.0 - BENIGN PROSTATIC HYPERPLASIA WITHOUT LOWER URINRY TRACT SYMP (8) CHF (congestive heart failure) Current Visit: Yes Status: Chronic Assessment & Plan: - Diastolic - Not in acute exacerbation - BNP 1380 - Continue home meds Code(s): I50.9 - HEART FAILURE, UNSPECIFIED - Discharge Discharge Date: 01/21/25 Disposition: Home, Self-Care Condition: Stable Prescriptions: Continue Fluoxetine HCl 20 mg [Prozac 20 MG] 20 mg PO DAILY Tamsulosin HCl 0.4 mg [Flomax 0.4 MG] 0.4 mg PO DAILY Enalapril Maleate 5 mg PO DAILY Potassium Chloride 20 meq PO BID Metoprolol Tartrate 25 mg [Lopressor 25MG Tab] 25 mg PO BID 30 Days #60 tablet Apixaban [Eliquis] 5 mg PO BID 30 Days #60 tablet Ipratropium/Albuterol Sulfate [Iprat-Albut 0.5-3(2.5) mg/3 ml] 3 ml IH QID PRN PRN PRN Reason: Shortness Of Breath/Wheezing Budesonide/Glycopyr/Formoterol [Breztri Aerosphere Inhaler] 10.7 gm IH BID Acetaminophen 325 mg [Tylenol 325 mg] 325 mg PO Q6H PRN PRN PRN Reason: Pain Follow up with: ALEX KUHN [Primary Care Provider, [facility]] - 01/26/25 10:00 am
[2025-01-21] MEDS ORDERED: DUONEB 0.5-3 MG/3 ml Neb IH PRN (16:19)
--- NOTE | 2025-01-21 16:26 | PCM.NOTE ---
Date and Time: 01/21/25 7565 Subjective Assessment: The patient is an 84-year-old male with a history of atrial fibrillation (on Eliquis, followed by Dr. Islas, with a recent DCCV), hypertension, congestive heart failure (EF 55% on recent echocardiogram), and COPD (not on home oxygen, with a recent hospitalization in November for an exacerbation), who presented to the ED with a 23 week history of progressively worsening shortness of breath and a minimally productive cough. He reported that his oxygen saturation had dropped into the 70s at home. He denied chest pain, hemoptysis, lower extremity swelling, fever, or chills, but did endorse chest tightness. In the ED, he was started on 2 L nasal cannula oxygen, with oxygen saturation improving to the mi d-to-upper 90s. He was initiated on antibiotics, steroids, and nebulizer treatments. On 01/21/25, the patient was sitting up in a chair and appeared comfortable. Troponin levels 3 were negative. He is currently maintaining oxygen saturation at 96% on room air, and his lung sounds are clear. Physical therapy will assist with ambulation, and respiratory therapy will evaluate for home oxygen needs. The patient and his daughter report intermittent choking while drinking and eating, so a speech therapy evaluation is scheduled for today. The patient states he has not had much appetite but is agreeable to drinking Ensure and prefers the vanilla flavor, which has been added to his meal plan. He will continue on his current treatment regimen, including antibiotics, steroids, and DuoNebs, while awaiting further evaluations. * Pt's family would like placement. Pt did not do well per ST and will need OP barium swallow per recs as radiologist not available tomorrow. She states she can do this OP Saturday. Case management working on rehab placement. - Review of Systems Constitutional: No Fever, No Chills Eyes: No Symptoms Ears, Nose, & Throat: No Symptoms Respiratory: No Cough, No Short Of Breath Cardiac: No Chest Pain, No Edema, No Syncope Abdominal/Gastrointestinal: No Abdominal Pain, No Nausea, No Vomiting, No Diarrhea Genitourinary Symptoms: No Dysuria Musculoskeletal: No Back Pain, No Neck Pain Skin: No Rash Neurological: No Dizziness, No Focal Weakness, No Sensory Changes Psychological: No Symptoms Endocrine: No Symptoms Hematologic/Lymphatic: No Symptoms Immunological/Allergic: No Symptoms Objective Exam General Appearance: no apparent distress, alert Neurologic Exam: alert, oriented x 3, cooperative, normal mood/affect, nml cerebellar function, sensation nml, No motor deficits Skin Exam: normal color, warm, dry Eye Exam: PERRL, EOMI, eyes nml inspection Ears, Nose, Throat Exam: normal ENT inspection, pharynx normal, moist mucous membranes Neck Exam: normal inspection, non-tender, supple, full range of motion Respiratory Exam: normal breath sounds, lungs clear, No respiratory distress Cardiovascular Exam: regular rate/rhythm, normal heart sounds Gastrointestinal/Abdomen Exam: soft, No tenderness, No mass Extremity Exam: normal inspection, normal range of motion Back Exam: normal inspection, normal range of motion, No CVA tenderness, No vertebral tenderness Male Genitalia Exam: deferred Rectal Exam: deferred Objective Data Vital Signs: Vital Signs - 24 hr Temp Pulse Resp BP BP Pulse Ox 01/21/25 12:00 96.8 F 81 20 102/66 95 01/21/25 08:00 97.7 F 66 20 128/63 91 L 01/21/25 07:43 59 L 16 99 01/21/25 04:44 97 F 78 16 136/60 97 01/21/25 04:00 97.9 F 66 18 112/56 97 01/21/25 00:56 66 18 97 01/21/25 00:00 97.9 F 66 18 112/56 97 01/20/25 19:15 81 20 98 01/20/25 18:34 97.9 F 60 20 112/56 96 01/20/25 18:18 99 01/20/25 18:00 57 L 20 90/63 97 01/20/25 17:30 46 L 20 110/50 99 01/20/25 17:00 68 22 94/42 99 01/20/25 16:30 53 L 21 94/55 99 Pain Assessment - Last Documented Pain Intensity 0 Intake and Output: Intake & Output 01/19/25 01/20/25 01/21/25 01/22/25 11:59 11:59 11:59 11:59 Intake Total 580 240 Output Total 350 300 Balance 230 -60 Weight 75.7 kg Lab Results: Lab Results-Last 24 Hours 01/20/25 01/20/25 01/20/25 Range/Units 16:14 16:15 16:15 WBC 11.7 H (4.23-9.07) x10^3/uL RBC 5.29 (4.63-6.08) x10^6/uL Hgb 15.7 (13.7-17.5) g/dL Hct 49.8 (40.1-51.0) % MCV 94.1 H (79.0-92.2) fL MCH 29.7 (25.7-32.2) pg MCHC 31.5 L (32.3-36.5) g/dL RDW 14.6 H (11.6-14.4) % Plt Count 189 (163-337) x10^3/uL MPV 10.5 (9.4-12.4) fL Gran % 72.7 H (34.0-67.9) % Immature Gran % (Auto) 0.7 H (0.001-0.429) % Nucleat RBC Rel Count 0.0 (0.00-0.2) % Eos # (Auto) 0.35 (0.04-0.54) x10^3/uL Immature Gran # (Auto) 0.08 H (0.001-0.031) x10^3u/L Absolute Lymphs (auto) 1.67 (1.32-3.57) x10^3/uL Absolute Monos (auto) 1.00 H (0.30-0.82) x10^3/uL Absolute Nucleated RBC 0.00 (0.00-0.012) x10^3u/L Lymphocytes % 14.3 L (21.8-53.1) % Monocytes % 8.6 (5.3-12.2) % Eosinophils % 3.0 (0.8-7.0) % Basophils % 0.7 (0.2-1.2) % Absolute Granulocytes 8.50 H (1.78-5.38) x10^3/uL Basophils # 0.08 (0.01-0.08) x10^3/uL Sodium 139 (135-145) mmol/L Potassium 4.4 (3.5-5.1) mmol/L Chloride 104 (98-107) mmol/L Carbon Dioxide 26 (22-30) mmol/L Anion Gap 12.7 (5-15) MEQ/L BUN 44 H (9-20) mg/dL Creatinine 0.78 (0.66-1.25) mg/dL Estimated GFR 87.4 ML/MIN Glucose 90 (74-106) mg/dL Lactic Acid 1.1 (0.4-2.0) Calcium 9.8 (8.4-10.2) mg/dL Magnesium 1.8 (1.6-2.3) mg/dL Total Bilirubin 1.30 (0.2-1.3) mg/dL AST 45 (17-59) U/L ALT 48 (0-50) U/L Alkaline Phosphatase 92 (38-126) U/L Troponin I (0.000-0.033) ng/mL NT-Pro-B Natriuret Pep (<300) pg/mL Serum Total Protein 6.8 (6.3-8.2) g/dL Albumin 3.8 (3.5-5.0) g/dL 01/20/25 01/20/25 01/21/25 Range/Units 16:15 20:10 02:30 WBC 7.6 (4.23-9.07) x10^3/uL RBC 5.16 (4.63-6.08) x10^6/uL Hgb 15.1 (13.7-17.5) g/dL Hct 47.7 (40.1-51.0) % MCV 92.4 H (79.0-92.2) fL MCH 29.3 (25.7-32.2) pg MCHC 31.7 L (32.3-36.5) g/dL RDW 14.4 (11.6-14.4) % Plt Count 170 (163-337) x10^3/uL MPV 10.4 (9.4-12.4) fL Gran % 89.8 H (34.0-67.9) % Immature Gran % (Auto) 0.8 H (0.001-0.429) % Nucleat RBC Rel Count 0.0 (0.00-0.2) % Eos # (Auto) 0 L (0.04-0.54) x10^3/uL Immature Gran # (Auto) 0.06 H (0.001-0.031) x10^3u/L Absolute Lymphs (auto) 0.67 L (1.32-3.57) x10^3/uL Absolute Monos (auto) 0.04 L (0.30-0.82) x10^3/uL Absolute Nucleated RBC 0.00 (0.00-0.012) x10^3u/L Lymphocytes % 8.8 L (21.8-53.1) % Monocytes % 0.5 L (5.3-12.2) % Eosinophils % 0.0 L (0.8-7.0) % Basophils % 0.1 L (0.2-1.2) % Absolute Granulocytes 6.86 H (1.78-5.38) x10^3/uL Basophils # 0.01 (0.01-0.08) x10^3/uL Sodium (135-145) mmol/L Potassium (3.5-5.1) mmol/L Chloride (98-107) mmol/L Carbon Dioxide (22-30) mmol/L Anion Gap (5-15) MEQ/L BUN (9-20) mg/dL Creatinine (0.66-1.25) mg/dL Estimated GFR ML/MIN Glucose (74-106) mg/dL Lactic Acid (0.4-2.0) Calcium (8.4-10.2) mg/dL Magnesium (1.6-2.3) mg/dL Total Bilirubin (0.2-1.3) mg/dL AST (17-59) U/L ALT (0-50) U/L Alkaline Phosphatase (38-126) U/L Troponin I 0.016 0.013 (0.000-0.033) ng/mL NT-Pro-B Natriuret Pep (<300) pg/mL Serum Total Protein (6.3-8.2) g/dL Albumin (3.5-5.0) g/dL 01/21/25 01/21/25 Range/Units 02:30 02:30 WBC (4.23-9.07) x10^3/uL RBC (4.63-6.08) x10^6/uL Hgb (13.7-17.5) g/dL Hct (40.1-51.0) % MCV (79.0-92.2) fL MCH (25.7-32.2) pg MCHC (32.3-36.5) g/dL RDW (11.6-14.4) % Plt Count (163-337) x10^3/uL MPV (9.4-12.4) fL Gran % (34.0-67.9) % Immature Gran % (Auto) (0.001-0.429) % Nucleat RBC Rel Count (0.00-0.2) % Eos # (Auto) (0.04-0.54) x10^3/uL Immature Gran # (Auto) (0.001-0.031) x10^3u/L Absolute Lymphs (auto) (1.32-3.57) x10^3/uL Absolute Monos (auto) (0.30-0.82) x10^3/uL Absolute Nucleated RBC (0.00-0.012) x10^3u/L Lymphocytes % (21.8-53.1) % Monocytes % (5.3-12.2) % Eosinophils % (0.8-7.0) % Basophils % (0.2-1.2) % Absolute Granulocytes (1.78-5.38) x10^3/uL Basophils # (0.01-0.08) x10^3/uL Sodium 138 (135-145) mmol/L Potassium 4.3 (3.5-5.1) mmol/L Chloride 105 (98-107) mmol/L Carbon Dioxide 25 (22-30) mmol/L Anion Gap 12.4 (5-15) MEQ/L BUN 44 H (9-20) mg/dL Creatinine 0.75 (0.66-1.25) mg/dL Estimated GFR 88.4 ML/MIN Glucose 149 H (74-106) mg/dL Lactic Acid (0.4-2.0) Calcium 9.5 (8.4-10.2) mg/dL Magnesium (1.6-2.3) mg/dL Total Bilirubin (0.2-1.3) mg/dL AST (17-59) U/L ALT (0-50) U/L Alkaline Phosphatase (38-126) U/L Troponin I 0.012 (0.000-0.033) ng/mL NT-Pro-B Natriuret Pep 1380 (<300) pg/mL Serum Total Protein (6.3-8.2) g/dL Albumin (3.5-5.0) g/dL Radiology Exams: Radiology Procedures Category Date Time Status CHEST 1 VIEW (PORTABLE) Stat Exams 01/20/25 15:52 Completed Medications: Medications Generic Name Dose Route Start Last Admin Trade Name Freq PRN Reason Stop Dose Admin Acetaminophen 325 mg 01/20/25 18:34 Acetaminophen 325 Mg Tablet PO 02/19/25 18:33 Q6H PRN PRN PAIN Albuterol/Ipratropium 3 ml 01/21/25 16:19 Ipratropium/Albuterol Sulfate 3 Ml Ampul.Neb IH 02/20/25 16:18 Q6HPRN PRN SHORTNESS OF BREATH Apixaban 5 mg 01/21/25 10:00 01/21/25 09:06 Apixaban 2.5 Mg Tablet PO 02/20/25 09:59 5 mg BID VLADIMIR Administration Methylprednisolone Sodium 0 mg 01/20/25 22:00 01/21/25 15:08 Succinate 40 mg/ Sterile Water IV 02/19/25 21:59 40 mg 1 ml Q8HT VLADIMIR Administration Fluoxetine HCl 20 mg 01/21/25 10:00 01/21/25 09:06 Fluoxetine Hcl 20 Mg Cap PO 02/20/25 09:59 20 mg DAILY VLADIMIR Administration Guaifenesin 600 mg 01/20/25 22:00 01/21/25 09:06 Guaifenesin 600 Mg Tablet Er PO 02/19/25 21:59 600 mg BID VLADIMIR Administration Ceftriaxone Sodium 1 gm in 100 mls @ 200 mls/hr 01/21/25 10:00 01/21/25 09:05 Rocephin 1 Gm / 100 Ml Nacl IV 02/20/25 09:59 200 mls/hr Q24H10 VLADIMIR Administration Lactobacillus Acidophilus 1 tab 01/21/25 10:00 01/21/25 09:06 Lactobacillus Acidophilus 1 Tab Tablet PO 02/20/25 09:59 1 tab DAILY VLADIMIR Administration Lisinopril 10 mg 01/21/25 10:00 01/21/25 09:06 Lisinopril 10 Mg Tablet PO 02/20/25 09:59 10 mg DAILY VLADIMIR Administration Metoprolol Tartrate 25 mg 01/20/25 22:00 01/21/25 11:11 Metoprolol Tartrate 25 Mg Tab PO 02/19/25 21:59 Not Given BID VLADIMIR Ondansetron HCl 4 mg 01/20/25 18:38 Ondansetron Hcl 4 Mg/2 Ml Vial IV 02/19/25 18:37 Q6H PRN PRN NAUSEA/VOMITING Potassium Chloride 20 meq 01/21/25 10:00 01/21/25 09:06 Potassium Chloride Tab 10 Meq Tab PO 02/20/25 09:59 20 meq BID VLADIMIR Administration Fluticasone/Salmeterol 2 puff 01/21/25 07:00 01/21/25 07:41 Fluticasone/Salmeterol 115/21 60 Puff Aer.W.Adap IH 02/20/25 06:59 2 puff BIDRT VLADIMIR Administration Tamsulosin HCl 0.4 mg 01/21/25 10:00 01/21/25 09:06 Tamsulosin Hcl 0.4 Mg Cap PO 02/20/25 09:59 0.4 mg DAILY VLADIMIR Administration Discontinued Medications Generic Name Dose Route Start Last Admin Trade Name Freq PRN Reason Stop Dose Admin Albuterol/Ipratropium 3 ml 01/20/25 15:52 01/20/25 16:13 Ipratropium/Albuterol Sulfate 3 Ml Ampul.Neb IH 01/20/25 15:53 3 ml STAT ONE Administration Albuterol/Ipratropium Confirm 01/20/25 16:09 Ipratropium/Albuterol Sulfate 3 Ml Ampul.Neb Administered 01/20/25 16:10 Dose 3 ml IH .STK-MED ONE Albuterol/Ipratropium 3 ml 01/20/25 19:00 01/21/25 16:18 Ipratropium/Albuterol Sulfate 3 Ml Ampul.Neb 02/19/25 18:59 Not Given Q6HRT VLADIMIR Apixaban Confirm 01/20/25 22:01 Apixaban 2.5 Mg Tablet Administered 01/20/25 22:02 Dose 5 mg .ROUTE .STK-MED ONE Azithromycin Confirm 01/20/25 17:24 Azithromycin Inj Administered 01/20/25 17:25 Dose 500 mg IV .STK-MED ONE Methylprednisolone Sodium 0 mg 01/20/25 15:52 01/20/25 17:01 Succinate 125 mg/ Sterile IV 01/20/25 15:53 125 mg Water 2 ml STAT ONE Administration Azithromycin 500 mg/ Sodium 250 mls @ 250 mls/hr 01/20/25 17:20 01/20/25 17:28 Chloride IV 01/20/25 18:19 250 mls/hr STAT STA 250 mls/hr Administration Ceftriaxone Sodium 2 gm in 100 mls @ 200 mls/hr 01/20/25 17:20 01/20/25 17:53 Rocephin 2 Gm/100 Ml Nacl IV 01/20/25 17:49 Infused STAT ONE Infusion Sodium Chloride Confirm 01/20/25 17:24 Sodium Chloride 0.9% 250 Ml Administered 01/20/25 17:25 Dose 250 mls @ ud IV .STK-MED ONE Ceftriaxone Sodium Confirm 01/20/25 17:24 Rocephin 2 Gm/100 Ml Nacl Administered 01/20/25 17:25 Dose 2 gm in 100 mls @ ud IV .STK-MED ONE Methylprednisolone Sodium Succinate Confirm 01/20/25 17:00 Methylprednis Sod Succ 125 Mg/2 Ml Vial Administered 01/20/25 17:01 Dose 125 mg .ROUTE .STK-MED ONE Methylprednisolone Sodium Succinate Confirm 01/20/25 22:01 Methylprednisolone Sod Suc 40m 40 Mg/Ml Vial Administered 01/20/25 22:02 Dose 40 mg .ROUTE .STK-MED ONE Methylprednisolone Sodium Succinate Confirm 01/21/25 05:56 Methylprednisolone Sod Suc 40m 40 Mg/Ml Vial Administered 01/21/25 05:57 Dose 40 mg .ROUTE .STK-MED ONE Non-Formulary Medication 5 mg 01/20/25 22:00 01/20/25 22:04 Apixaban [Eliquis] PO 02/19/25 21:59 5 mg BID VLADIMIR Administration Non-Formulary Medication 20 meq 01/20/25 22:00 01/20/25 22:04 Potassium Chloride [Potassium Chloride] PO 02/19/25 21:59 20 meq BID VLADIMIR Administration Potassium Chloride Confirm 01/20/25 22:01 Potassium Chloride Tab 10 Meq Tab Administered 01/20/25 22:02 Dose 20 meq .ROUTE .STK-MED ONE Sterile Water Confirm 01/20/25 17:00 Water For Injection,Sterile 10 Ml Vial Administered 01/20/25 17:01 Dose 10 ml IJ .STK-MED ONE Multi-Disciplinary Progress Notes: Multi-Disciplinary Progress Notes 01/21/25 15:34 Case Management Note by Ewa Parra [facility] HAS ACCEPTED PATIENT AND STARTED AUTHORIZATION - PATIENT MUST HAVE PRECERT BEFORE HE CAN DC TRANSFER TO SNF Initialized on 01/21/25 15:34 - END OF NOTE 01/21/25 13:57 Case Management Note by Ewa Parra PASRR DONE- NO LEVEL II REQUIRED. COPY PLACED ON CHART FULL REFERRAL FAXED TO [facility] AT THIS TIME Initialized on 01/21/25 13:57 - END OF NOTE 01/21/25 13:39 Case Management Note by Ewa Parra PATIENT HAS [facility]. THEY WERE NOTIFIED PATIENT HERE OBS. THEY WILL NEED NOTIFIED AT TIME OF DC AT [phone]. THEY WILL NEED FAXED THE DC INSTRUCTIONS, DC MED LIST AND DC SUMMARY TO [phone] Initialized on 01/21/25 13:39 - END OF NOTE 01/21/25 11:51 Respiratory Note by Marycruz Catalan Patient's O2 sat 93% on RA at rest. Patient ambulated and O2 sat increased to 95% on RA with ambulation Initialized on 01/21/25 11:51 - END OF NOTE Assessment/Plan (1) COPD exacerbation Current Visit: Yes Status: Acute Code(s): J44.1 - CHRONIC OBSTRUCTIVE PULMONARY DISEASE W (ACUTE) EXACERBATION (2) Dysphagia Current Visit: Yes Status: Acute Code(s): R13.10 - DYSPHAGIA, UNSPECIFIED (3) Weight loss Current Visit: Yes Status: Acute (4) Acute bronchitis Current Visit: Yes Status: Acute Code(s): J20.9 - ACUTE BRONCHITIS, UNSPECIFIED (5) Acute hypoxic respiratory failure Current Visit: Yes Status: Acute Code(s): J96.01 - ACUTE RESPIRATORY FAILURE WITH HYPOXIA (6) Atrial fibrillation Current Visit: Yes Status: Chronic Code(s): I48.91 - UNSPECIFIED ATRIAL FIBRILLATION (7) BPH (benign prostatic hyperplasia) Current Visit: No Status: Chronic Code(s): N40.0 - BENIGN PROSTATIC HYPERPLASIA WITHOUT LOWER URINRY TRACT SYMP (8) CHF (congestive heart failure) Current Visit: Yes Status: Chronic Assessment & Plan: 1) COPD exacerbation Current Visit: Yes Status: Acute Assessment & Plan: - Ceftriaxone, Duoneb, Adviar, steroids, Mucinex - Lung sounds clear - RA 97% - RT eval for home O2 - CBC, CMP reviewed - WBC 7.6 - Family would like pt to go to [facility]- working on placement. Code(s): J44.1 - CHRONIC OBSTRUCTIVE PULMONARY DISEASE W (ACUTE) EXACERBATION (2) Dysphagia Current Visit: Yes Status: Acute Assessment & Plan: - ST eval: per recs would like pt to have OP barium swallow Saturday- case management to set up - Coughing with eating and drinking observed by staff and daughter Code(s): R13.10 - DYSPHAGIA, UNSPECIFIED (3) Weight loss Current Visit: Yes Status: Acute Assessment & Plan: - 5 kg since october - Ensure high protein- vanilla - Pt states he does not feel like eating much. (4) Acute bronchitis Current Visit: Yes Status: Acute Assessment & Plan: - Ceftriaxone, Duoneb, Adviar, steroids, Mucinex - Lung sounds clear - RA 97% Code(s): J20.9 - ACUTE BRONCHITIS, UNSPECIFIED (5) Acute hypoxic respiratory failure Current Visit: Yes Status: Acute Assessment & Plan: - Ceftriaxone, Duoneb, Adviar, steroids, Mucinex - Lung sounds clear - RA 97% - RT eval for home O2 - CXR: Portable chest again demonstrates pulmonary edema, cardiomegaly, and left hemidiaphragm elevation with adjacent subsegmental atelectasis. Bony thorax intact again with osteopenia, degenerative changes, and healing right humeral head fracture. No new cardiopulmonary abnormalities. Code(s): J96.01 - ACUTE RESPIRATORY FAILURE WITH HYPOXIA (6) Atrial fibrillation Current Visit: Yes Status: Chronic Assessment & Plan: - Had DCCV a few weeks ago. - Continue home regimen. - On anticoagulation. - Telemetry monitoring. Code(s): I48.91 - UNSPECIFIED ATRIAL FIBRILLATION (7) BPH (benign prostatic hyperplasia) Current Visit: No Status: Chronic Assessment & Plan: - Continue Flomax Code(s): N40.0 - BENIGN PROSTATIC HYPERPLASIA WITHOUT LOWER URINRY TRACT SYMP (8) CHF (congestive heart failure) Current Visit: Yes Status: Chronic Assessment & Plan: - Diastolic - Not in acute exacerbation - BNP 1380 - Continue home meds Code(s): I50.9 - HEART FAILURE, UNSPECIFIED Mgnt and plan of care time took > 40 minutes today. Code(s): I50.9 - HEART FAILURE, UNSPECIFIED
[2025-01-22 04:28] LABS: Hematocrit 43.5 % (40.1-51.0); Hemoglobin 14.1 g/dL (13.7-17.5); Mean Corpuscular Hemoglobin 30.2 pg (25.7-32.2); Mean Corpuscular Hgb Concent. 32.4 g/dL (32.3-36.5); Platelet Count 165 x10^3/uL (163-337); Red Blood Count 4.67 x10^6/uL (4.63-6.08); White Blood Count 21.3 x10^3/uL (4.23-9.07)
[2025-01-22 04:42] LABS: Calcium 9.8 mg/dL (8.4-10.2); Carbon Dioxide 26.0 mmol/L (22-30); Creatinine 1 0.73 mg/dL (0.66-1.25); EST GLOMERULAR FILTRATION RATE 89.2 ML/MIN; Glucose 132.0 mg/dL (74-106); Potassium 4.5 mmol/L (3.5-5.1)
[2025-01-22 04:53] VITALS: O2SAT 94
[2025-01-22 07:29] VITALS: TEMP 97.9
--- NOTE | 2025-01-22 10:06 | PCM.DS ---
Discharge Summary Date of Admission: 01/20/25 18:20 Date of Discharge: 01/22/25 Admitting Physician: HEDY BUTT MD Primary Care Provider: ALEX KUHN Allergies Allergies No Known Drug Allergies Allergy (Verified 12/05/24 21:06) Hospital Summary - Hospital Course Hospital Course: An 84-year-old male with a history of atrial fibrillation (on Eliquis, recently underwent DCCV), hypertension, congestive heart failure (EF 55%), and COPD (recent exacerbation in November) presented to the ED with a 23 week history of worsening shortness of breath and a minimally productive cough. He reported home oxygen saturations in the 70s but denied chest pain, hemoptysis, swelling, fever, or chills, though he did endorse chest tightness. In the ED, he was started on 2 L nasal cannula with improvement in oxygen saturation to the [id number] 90s. He was treated with antibiotics, steroids, and nebulizer treatments. By 01/21, he was comfortable, sitting in a chair, with clear lung sounds and oxygen saturation of 96% on room air. Troponins 3 were negative. Physical therapy assisted with ambulation, and respiratory therapy began evaluating for home oxygen needs. The patient and his daughter noted intermittent choking with eating and drinking, so a speech therapy evaluation was completed. Due to concerns noted during the assessment, a modified barium swallow was recommended, which will be scheduled for outpatient completion on Saturday or Saturday due to radiologist unavailability. The patient reported poor appetite but agreed to drink vanilla Ensure, which was added to his diet. Case management is coordinating rehab placement, and discharge is planned for today to [facility]. His lung sounds remain clear, and although his WBC count is elevated, this is likely related to steroid use. He will continue antibiotics, steroids, and DuoNebs as an outpatient. - Vitals & Intake/Output Vital Signs: Vital Signs Temperature 97.9 F 01/22/25 07:28 Pulse Rate 62 01/22/25 07:35 Respiratory Rate 18 01/22/25 07:35 Blood Pressure 114/55 01/22/25 07:28 O2 Sat by Pulse Oximetry 94 L 01/22/25 07:35 Intake & Output: Intake & Output 01/19/25 01/20/25 01/21/25 01/22/25 11:59 11:59 11:59 11:59 Intake Total 580 880 Output Total 350 1050 Balance 230 -170 Weight 75.7 kg - Lab Result Diagrams: 01/22/25 04:20 01/22/25 04:20 Lab Results-Last 24 Hrs: Lab Results-Last 24 Hours 01/22/25 01/22/25 Range/Units 04:20 04:20 WBC 21.3 H (4.23-9.07) x10^3/uL RBC 4.67 (4.63-6.08) x10^6/uL Hgb 14.1 (13.7-17.5) g/dL Hct 43.5 (40.1-51.0) % MCV 93.1 H (79.0-92.2) fL MCH 30.2 (25.7-32.2) pg MCHC 32.4 (32.3-36.5) g/dL RDW 14.6 H (11.6-14.4) % Plt Count 165 (163-337) x10^3/uL MPV 10.6 (9.4-12.4) fL Sodium 135 (135-145) mmol/L Potassium 4.5 (3.5-5.1) mmol/L Chloride 105 (98-107) mmol/L Carbon Dioxide 26 (22-30) mmol/L Anion Gap 9.4 (5-15) MEQ/L BUN 45 H (9-20) mg/dL Creatinine 0.73 (0.66-1.25) mg/dL Estimated GFR 89.2 ML/MIN Glucose 132 H (74-106) mg/dL Calcium 9.8 (8.4-10.2) mg/dL Micro Results-Entire Visit: Microbiology 01/20/25 16:15 Blood Culture - Preliminary Blood 01/20/25 16:09 Blood Culture - Preliminary Blood - Radiology Exams Ordered Rad Exams-Entire Visit: Radiology Procedures Category Date Time Status CHEST 1 VIEW (PORTABLE) Stat Exams 01/20/25 15:52 Completed - Procedures and Test Procedures and Tests throughout Hospitalization: Therapy Orders & Screens 01/20/25 18:38 PT Eval & Treat ( Order) ONCE Reason for Eval:: ambulatory O2 assessment Diagnosis: copd exacerbation Respiratory Therapy Consult ONCE Comment: Reason For Exam: Diagnosis: copd exacerbation 01/20/25 18:40 ST Eval & Treat (MD Order) ROUTINE Comment: Physician Instructions: Reason For Exam: Evaluate: Yes Treat: Yes Reason for Eval: assess for occult dysphagia Diagnosis: copd exacerbation 01/20/25 18:57 RT Screen per Nursing Assess ONCE Comment: Protocol Order Physician Instructions: Greater than 3 points order RT Admission Screen Reason For Exam: Triggered on Admission Diagnosis: copd exacerbation Diagnosis: copd exacerbation Pneumonia: Yes Home O2: No Asthma: No CHF: No Home CPAP/BIPAP: No Home Nebs/MDI: Yes Total Points: 8 ST Screen per Nursing Assess ONCE Comment: Protocol Order Physician Instructions: Greater than [address] Admission Screening Reason For Exam: Triggered on Admission Diagnosis: copd exacerbation CVA/Dysphagia/Aphasia: No Cognitive Deficits: No Dehydration/Nutrition Deficit: No Reflux: No Oral-Motor Difficulties: No Pneumonia: Yes Snf Resident: No Total Points: 5 01/20/25 19:19 Oxygen Nasal Cannula 2 lpm Comment: Diagnosis: copd exacerbation 01/20/25 19:20 Incentive Spirometry UD Comment: Diagnosis: copd exacerbation 01/21/25 10:09 RT Miscellaneous Order ROUTINE Comment: Physician Instructions: Reason For Exam: eval for home O2 Diagnosis: copd exacerbation Discharge Exam General Appearance: no apparent distress, alert Neurologic Exam: alert, oriented x 3, cooperative, normal mood/affect, nml cerebellar function, sensation nml, motor weakness, No motor deficits Eye Exam: PERRL, EOMI, eyes nml inspection Ears, Nose, Throat Exam: normal ENT inspection, pharynx normal, moist mucous membranes Neck Exam: normal inspection, non-tender, supple, full range of motion Respiratory Exam: normal breath sounds, lungs clear, No respiratory distress Cardiovascular Exam: regular rate/rhythm, normal heart sounds Gastrointestinal/Abdomen Exam: soft, No tenderness, No mass Male Genitalia Exam: deferred Rectal Exam: deferred Back Exam: normal inspection, normal range of motion, No CVA tenderness, No vertebral tenderness Extremity Exam: normal inspection, normal range of motion Skin Exam: normal color, warm, dry Final Diagnosis/Problem List - Final Discharge Diagnosis/Problem (1) COPD exacerbation Current Visit: Yes Status: Acute Code(s): J44.1 - CHRONIC OBSTRUCTIVE PULMONARY DISEASE W (ACUTE) EXACERBATION (2) Dysphagia Current Visit: Yes Status: Acute Code(s): R13.10 - DYSPHAGIA, UNSPECIFIED (3) Weight loss Current Visit: Yes Status: Acute (4) Acute bronchitis Current Visit: Yes Status: Acute Code(s): J20.9 - ACUTE BRONCHITIS, UNSPECIFIED (5) Acute hypoxic respiratory failure Current Visit: Yes Status: Acute Code(s): J96.01 - ACUTE RESPIRATORY FAILURE WITH HYPOXIA (6) Atrial fibrillation Current Visit: Yes Status: Chronic Code(s): I48.91 - UNSPECIFIED ATRIAL FIBRILLATION (7) BPH (benign prostatic hyperplasia) Current Visit: No Status: Chronic Code(s): N40.0 - BENIGN PROSTATIC HYPERPLASIA WITHOUT LOWER URINRY TRACT SYMP (8) CHF (congestive heart failure) Current Visit: Yes Status: Chronic Assessment & Plan: 1) COPD exacerbation Current Visit: Yes Status: Acute Assessment & Plan: - Ceftriaxone, Duoneb, Adviar, steroids, Mucinex - Lung sounds clear - RA 97% - RT eval for home O2 - CBC, CMP reviewed - WBC 7.6 - Family would like pt to go to [facility]- working on placement. 01/22 - D/C to [facility] today - Continue antibiotics and steroids OP Code(s): J44.1 - CHRONIC OBSTRUCTIVE PULMONARY DISEASE W (ACUTE) EXACERBATION (2) Dysphagia Current Visit: Yes Status: Acute Assessment & Plan: - ST eval: per recs would like pt to have OP barium swallow Saturday- case management to set up - Coughing with eating and drinking observed by staff and daughter Code(s): R13.10 - DYSPHAGIA, UNSPECIFIED (3) Weight loss Current Visit: Yes Status: Acute Assessment & Plan: - 5 kg since october - Ensure high protein- vanilla - Pt states he does not feel like eating much. (4) Acute bronchitis Current Visit: Yes Status: Acute Assessment & Plan: - Ceftriaxone, Duoneb, Adviar, steroids, Mucinex - Lung sounds clear - RA 97% Code(s): J20.9 - ACUTE BRONCHITIS, UNSPECIFIED (5) Acute hypoxic respiratory failure Current Visit: Yes Status: Acute Assessment & Plan: - Ceftriaxone, Duoneb, Adviar, steroids, Mucinex - Lung sounds clear - RA 97% - RT eval for home O2 - CXR: Portable chest again demonstrates pulmonary edema, cardiomegaly, and left hemidiaphragm elevation with adjacent subsegmental atelectasis. Bony thorax intact again with osteopenia, degenerative changes, and healing right humeral head fracture. No new cardiopulmonary abnormalities. Code(s): J96.01 - ACUTE RESPIRATORY FAILURE WITH HYPOXIA (6) Atrial fibrillation Current Visit: Yes Status: Chronic Assessment & Plan: - Had DCCV a few weeks ago. - Continue home regimen. - On anticoagulation. - Telemetry monitoring. Code(s): I48.91 - UNSPECIFIED ATRIAL FIBRILLATION (7) BPH (benign prostatic hyperplasia) Current Visit: No Status: Chronic Assessment & Plan: - Continue Flomax Code(s): N40.0 - BENIGN PROSTATIC HYPERPLASIA WITHOUT LOWER URINRY TRACT SYMP (8) CHF (congestive heart failure) Current Visit: Yes Status: Chronic Assessment & Plan: - Diastolic - Not in acute exacerbation - BNP 1380 - Continue home meds Code(s): I50.9 - HEART FAILURE, UNSPECIFIED D/C plan of care time > 34 minutes Code(s): I50.9 - HEART FAILURE, UNSPECIFIED - Discharge Discharge Date: 01/22/25 (Rehab) Disposition: DC TO ANY "OTHER" CORRECTION Condition: Stable Prescriptions: New Albuterol/Ipratropium 3ml Neb* [DUONEB 0.5-3 MG/3 ml Neb] 3 ml IH Q6HPRN PRN 8 Days #30 amp PRN Reason: Shortness Of Breath Continue Fluoxetine HCl 20 mg [Prozac 20 MG] 20 mg PO DAILY Tamsulosin HCl 0.4 mg [Flomax 0.4 MG] 0.4 mg PO DAILY Enalapril Maleate 5 mg PO DAILY Potassium Chloride 20 meq PO BID Metoprolol Tartrate 25 mg [Lopressor 25MG Tab] 25 mg PO BID 30 Days #60 tablet Apixaban [Eliquis] 5 mg PO BID 30 Days #60 tablet Ipratropium/Albuterol Sulfate [Iprat-Albut 0.5-3(2.5) mg/3 ml] 3 ml IH QID PRN PRN PRN Reason: Shortness Of Breath/Wheezing Budesonide/Glycopyr/Formoterol [Breztri Aerosphere Inhaler] 10.7 gm IH BID Acetaminophen 325 mg [Tylenol 325 mg] 325 mg PO Q6H PRN PRN PRN Reason: Pain Outpatient Orders: MODIFIED BARIUM SWALLOW EXAM Facility: [facility], Location: RADIOLOGY Additional Instructions: CORRECTION ORDERS: ADMIT TO HALFWAY FACILITY HEART HEALTHY DIET ENSURE HIGH PROTEIN WITH MEALS MEDICATIONS IN PUDDING OR APPLESAUCE ST/PT/OT EVAL AND TREAT PATIENT IS SCHEDULED FOR MODIFIED BARIUM SWALLOW 01/27/25@ 1PM AT [facility] (DAUGHTER WILL PROVIDE TRANSPORT) - PLEASE ARRIVE EARLY FOR APT. - MAY HAVE NORMAL BREAKFAST WITH VERY LIGHT LUNCH SEE ATTACHED MED LIST Follow up with: ALEX KUHN [Primary Care Provider, [facility]ILY [facility]] - 01/26/25 10:00 am
[2025-01-22 11:43] VITALS: BP 115/73; PULSE 74; RESP 20
== END 2025-01-22 13:38 ==
LOC: ED 15:39 → MED SURG 18:20
PROVIDERS: ADMIT Internal Medicine; ATTEND Internal Medicine
DX: J44.1 Chronic obstructive pulmonary disease with (acute) exacerbation (principal); R13.10 Dysphagia, unspecified; Z59.811 Housing instability, housed, with risk of homelessness; R63.4 Abnormal weight loss; J20.9 Acute bronchitis, unspecified; J96.01 Acute respiratory failure with hypoxia; I48.91 Unspecified atrial fibrillation; I11.0 Hypertensive heart disease with heart failure; N40.0 Benign prostatic hyperplasia without lower urinary tract symptoms; I50.9 Heart failure, unspecified; Z79.01 Long term (current) use of anticoagulants; Z79.899 Other long term (current) drug therapy
CPT/HCPCS: 36415; 71045; 80048; 80053; 83605; 83735; 83880; 84484; 85025; 85027; 87040; 92610; 93005; 93041; 93268; 94640; 94762; 96365; 96374; 97161; 99285; G0378; Q3014